=== PATIENT | female | born 1965 | race Caucasian/White ===

== ENCOUNTER 2023-05-08 00:31 | Inpatient (IN) | payer BC, SELFPAY ==
[2023-05-07 20:25] VITALS: BP 185/136
[2023-05-07 21:12] VITALS: BMI 19.9
[2023-05-07 21:38] LABS: % Eosinophils 0.7 % (0-6); % Immature Granulocytes 0.2 % (0-0.5); % Lymphocytes 13.2 % (20.5-51.1); % Monocytes 5.6 % (1.7-9.3); % Neutrophils 79.3 % (42.2-75.2); Absolute Basophils 0.1 10^3/uL (0-0.2); Absolute Eosinophils 0.1 10^3/uL (0-0.7); Absolute Lymphocytes 1.1 10^3/uL (1.2-3.4); Absolute Monocytes 0.5 10^3/uL (0.1-0.6); Absolute Neutrophils 6.4 10^3/uL (1.4-6.5); Hematocrit 38.7 % (37.0-47.0); Hemoglobin 14.1 g/dL (12.0-16.0); Mean Corp Hgb Conc. 36.4 g/dL (33.0-37.0); Mean Corpuscular Hgb 29.4 pg (27.0-31.0); Mean Corpuscular Volume 80.6 fL (81.0-99.0); Mean Platelet Volume 8.2 fL (7.4-10.4); Nucleated Red Blood Cells % 0 %; Platelet Count 256 10^3/uL (130-400); Red Cell Dist. Width 12.5 % (11.5-14.5); White Blood Cell Count 8.1 10^3/uL (4.8-10.8)
[2023-05-07 21:40] VITALS: BP 210/110
[2023-05-07] MEDS: VALIUM INJECTION 5 MG IV (21:46)
[2023-05-07] MEDS: NSS 1000 IV (21:53)
[2023-05-07 21:59] LABS: ALT (SGPT) 35 U/L (0-35); AST (SGOT) 57 U/L (14-36); Albumin 5.6 g/dl (3.5-5.0); Alkaline Phosphatase 55 U/L (38-126); Blood Urea Nitrogen 6 mg/dl (7-17); Calcium 9.5 mg/dl (8.4-10.2); Carbon Dioxide 23 mmol/L (22-30); Chloride 82 mmol/L (98-107); Creatine Phosphokinase 306 U/L (30-135); Estimated Creatinine Clearance 90 ml/min; Glucose 112 mg/dl (70-99); Magnesium 1.8 mg/dl (1.6-2.3); Potassium 4.1 mmol/L (3.5-5.1); Sodium 114 mmol/L (135-145); Total Bilirubin 0.6 mg/dl (0.2-1.3); Total Protein 8.8 g/dl (6.3-8.2); eGFR > 60.00
[2023-05-07 22:03] LABS: Troponin I < 0.012 ng/ml
[2023-05-07 22:31] VITALS: BP 180/110
--- NOTE | 2023-05-07 22:32 | ED.GENMED ---
History of Present Illness
<Edilberto Rocha DO - Last Filed: 05/15/23 09:14>
General
Chief Complaint: Chest Pain
Time Seen by Provider: 05/07/23 20:51
Travel History
Have you had any contact with someone who has COVID-19?: No
Do you have any symptoms of coronavirus? Fever > 100 degrees, chills, cough, shortness of breath, sore throat, loss of taste or smell, muscle aches, or headache?: No
<Falguni White PA-C - Last Filed: 05/12/23 09:39>
General
Source: patient
Exam Limitations: none
Nursing documentation reviewed up to this point in time: agreed with
History of Present Illness
History of Present Illness:
pt is a 57 y/o F with h/o anxiety/depression, htn
says that she has been having chest tightness off and on for a few days, was attributing to stress. she got spearated fro her and just moved to this area.
pt says she felt some chest tightness around 4 pm today and went for a run with her dog, was able to do the run . but then shortly after felt nauseated, fatigued and got some cramps in her legs. she says she didn't feel right, she wasn't sure if
she was having a panic attack.
does admit to daily alcohol use,vodka. and has had hyponatremia before which was attributed to her psychiatric meds. but she has never been hospitalized for it
she is on a low dose lisinopril becuase she doesn't tolerate bp meds well
she has not had any blurry vision, headache, confusion, focal weakness, pleuritic pain, vomiting, diarrhea.
while i was examining pt she was having severe muscle spasms in her legs, was tachycardic and diaphoretic
<Falguni White PA-C - Last Filed: 05/12/23 09:39>
Past History
ED Past Medical History: HTN and Psychiatric
Social History
Tobacco: Non-smoker
Alcohol: Daily
Drug: None
Personal:
Living: alone
Employment: Employed
<AZIZA Valdovinos Last Filed: 05/12/23 09:39>
Review of Systems
Allergies reviewed?: Yes
All Other Systems: Not applicable
<AZIZA Valdovinos Last Filed: 05/12/23 09:39>
Physical Exam
Physical Exam:
GENERAL: Alert , during spasm pt was diaphoretic and tachy and uncomfortable with tenseness in her legs; all resolved and vitals stabilized
EYE: pupils equal and reactive
NECK: Supple
ENT: o/p clr, mmm.
CARDIAC: Regular rate and rhythm .
LUNGS: Clear breath sounds bilaterally, no acute respiratory distress, no wheezes/rales/rhonchi
ABDOMEN: Soft, without focal tenderness, no r/g, no cvat, normal bowel sounds
NEUROLOGICAL: Alert and oriented, no focal neuro deficits
SKIN: Warm and dry, skin intact.
MUSCULOSKELETAL: No edema, well perfused. neg norberto's sign
normal pulses
PSYCH: Normal and appropriate interaction.
Scores
<Edilberto Rocha DO - Last Filed: 05/15/23 09:14>
Heart Score for Chest Pain Patients
Heart Score for Chest Pain Patients: 3
Heart Score Risk: 2.5% MACE over next 6 weeks
<AZIZA Valdovinos Last Filed: 05/12/23 09:39>
Heart Score for Chest Pain Patients
STEMI patient?: No
History: Slightly or Non-Suspicious
ECG: Nonspecific Repolarization
Age: >45 - <65 years
Risk Factors: 1 or 2 Risk Factors
Troponin: </= Normal Limit
Heart Score for Chest Pain Patients: 3
Heart Score Risk: 2.5% MACE over next 6 weeks
Course
<Edilberto Rocha, - Last Filed: 05/15/23 09:14>
Orders/Labs/Results
Orders:
Orders
05/07/23 20:23
Electrocardiogram (*1) Urgent
Reason for Study: Chest Pain
05/07/23 20:24
EKG- Treatment ONCE
05/07/23 21:02
Cardiac Monitoring- Treatment ONCE
IV Insert/Care/Rem.- Treatment PRN
O2 Therapy [RESP] Urgent
Titrate/Wean O2 to maintain O2 sat greater than (%): 93
Special Instructions: TO MAINTAIN CONTINUOUS O2 SATS >/= 93%
Pulse Ox/cont/shift [RESP] Urgent
Quantity: 1
Special Instructions: continuous pulse ox
05/07/23 21:32
Alcohol Urgent
Complete Blood Count/With Diff Urgent
Comprehensive Metabolic Panel Urgent
Creatine Phosphokinase Urgent
Magnesium Urgent
Serum Osmolality Urgent
Comment: ADD ON
Troponin I Urgent
05/07/23 21:36
diazePAM [Valium Injection] 10 mg .ROUTE .STK-MED ONE
05/07/23 21:46
diazePAM [Valium Injection] 5 mg IV NOW STA
05/07/23 21:53
0.9% Sodium Chloride 1000 ml [Nss] 1,000 ml IV BOLUS
05/07/23 22:11
Add On- LAB Urgent
Tests Added?: UA, UDS
05/07/23 22:12
Labetalol HCl [Trandate] 10 mg IV NOW STA
05/07/23 22:42
Osmolality, Random Urine Urgent
Date Specimen was Collected: 05/07/23
Time Specimen was Collected: 22:30
Urine Sodium Urgent
Date Specimen was Collected: 05/07/23
Time Specimen was Collected: 22:30
05/07/23 23:00
3% Sodium Chloride 250 ml [Sodium Chloride 3%] 250 ml IV ONCE
05/08/23 00:07
CT Head W/o Iv Contrast Urgent
Comment:
Reason For Exam: Headache, Hyponatremia
Diazepam [Valium] 5 mg PO NOW STA
CXR2 [CR Chest - 2 Views ] Urgent
Comment:
Reason For Exam: Hyponatremia
05/08/23 00:11
Admit/Transfer Patient As Directed
Co-Sign Provider:
Level of Care: Inpatient admission
Assign to:: ICU
Physician / Group: Vasyl
Diagnosis: Symptomatic Hyponatremia, Uncontrolled Hypertension
Reason for Hospitalization: Symptomatic Hyponatremia, Uncontrolled Hypertension
Expected length of stay greater than two midnights?: Yes
ELOS- Estimated Length of Stay in days: 3
I certify the patient meets the requirements for IP care: Yes
05/08/23 00:14
Code Status As Directed
Resuscitation Status: Full Code
05/08/23 02:08
Acetaminophen [Tylenol] 650 mg PO Q4HPRN PRN
Diazepam [Valium] 5 mg PO TIDPRN PRN
HYDROmorphone [Dilaudid] 0.5 mg IV Q4HPRN PRN
Labetalol HCl [Trandate] 10 mg IV Q6HPRN PRN
05/08/23 02:08
NEPHROLOGY CONSULT Routine
Consulting Provider: Funmi Fitzgerald
Was physician already notified: Yes
Reason for consult: Hyponatremia
Activity As Directed
Activity Level: Ambulate
With Assistance
Bladder Scan As Directed
Follow Bladder Retention/Intermittent Cath Algorithm?: Yes
PRN if no void in __ hours: 6
Frequency: Per Retention Algorithm
If Bladder Scan Result >: 400
then:: Straight cath
EKG with chest pain [ECG as needed] As Directed
ECG as needed for:: Chest Pain
I/O [Intake/ Output] As Directed
Frequency: Per unit guidelines
Neurological Checks As Directed
Frequency: q4h
Orthostatic Vital Signs As Directed
Orthostatic VS Frequency: BID
Pneumatic Compression Sleeves As Directed
Type: Knee high
Straight Cath As Directed
Frequency: Per Retention Algorithm
Additional Instructions: straight cath as needed per acute urinary retention algorithm for 24 hrs
Additional Instructions: for bladder scan greater than 400 mL
Vital Signs As Directed
Frequency: Per unit guidelines
Oxygen Therapy [O2 Therapy] [RESP] Routine
Titrate/Wean O2 to maintain O2 sat greater than (%): 94
DX Deep Vein Thrombosis Video Routine
05/08/23 02:50
Sodium Q4H
TSH Reflex To Free T4 Routine
05/08/23 06:00
EKG [Electrocardiogram (*1)] IN AM
Reason for Study: Chest Pain
Regular
At Your Request: Full Participation
Fluid Restriction: 1200 mL/day (40 oz)
Basic Metabolic Panel IN AM
Complete Blood Count/No Diff IN AM
Cortisol, Random IN AM
Creatine Phosphokinase IN AM
Magnesium IN AM
Phosphorus IN AM
Sodium Q4H
05/08/23 08:00
Thyroid [[place] Thyroid] 60 mg PO DAILY
05/08/23 10:21
Sodium Q4H
05/08/23 22:00
Quetiapine Fumarate [Seroquel] 50 mg PO HS
Abnormal Lab Results
05/07/23 05/07/23
21:32 22:42
MCV 80.6 L fL
(81.0-99.0)
Absolute Lymphs (auto) 1.1 L 10^3/uL
(1.2-3.4)
Neutrophils % 79.3 H %
(42.2-75.2)
Lymphocytes % 13.2 L %
(20.5-51.1)
Sodium 114 L* mmol/L
(135-145)
Chloride 82 L mmol/L
(98-107)
BUN 6 L mg/dl
(7-17)
Creatinine 0.4 L mg/dL
(0.6-1.0)
Glucose 112 H mg/dl
(70-99)
Serum Osmolality 243 L mOsm/kg
(275-300)
AST 57 H U/L
(14-36)
Creatine Kinase 306 H U/L
(30-135)
Total Protein 8.8 H g/dl
(6.3-8.2)
Albumin 5.6 H g/dl
(3.5-5.0)
Urine Sodium 143 H mmol/L
(30-90)
05/07/23 21:32
05/07/23 21:32
Vital Signs
Initial and Last Documented VS:
Initial Vital Signs
Temp Pulse Resp BP Pulse Ox
98.7 F 93 16 185/136 99
05/07/23 20:25 05/07/23 20:25 05/07/23 20:25 05/07/23 20:25 05/07/23 20:25
Last Documented Vital Signs
Temp Pulse Resp BP Pulse Ox
98.0 F 90 18 151/97 98
05/11/23 11:18 05/11/23 13:44 05/11/23 14:00 05/11/23 14:08 05/10/23 16:00
Cassialt;Falguni White PA-C - Last Filed: 05/12/23 09:39>
Orders/Labs/Results
Orders:
Orders
05/07/23 20:23
Electrocardiogram (*1) Urgent
Reason for Study: Chest Pain
05/07/23 20:24
EKG- Treatment ONCE
05/07/23 21:02
Cardiac Monitoring- Treatment ONCE
IV Insert/Care/Rem.- Treatment PRN
O2 Therapy [RESP] Urgent
Titrate/Wean O2 to maintain O2 sat greater than (%): 93
Special Instructions: TO MAINTAIN CONTINUOUS O2 SATS >/= 93%
Pulse Ox/cont/shift [RESP] Urgent
Quantity: 1
Special Instructions: continuous pulse ox
05/07/23 21:32
Alcohol Urgent
Complete Blood Count/With Diff Urgent
Comprehensive Metabolic Panel Urgent
Creatine Phosphokinase Urgent
Magnesium Urgent
Serum Osmolality Urgent
Comment: ADD ON
Troponin I Urgent
05/07/23 21:36
diazePAM [Valium Injection] 10 mg .ROUTE .STK-MED ONE
05/07/23 21:46
diazePAM [Valium Injection] 5 mg IV NOW STA
05/07/23 21:53
0.9% Sodium Chloride 1000 ml [Nss] 1,000 ml IV BOLUS
05/07/23 22:11
Add On- LAB Urgent
Tests Added?: UA, UDS
05/07/23 22:12
Labetalol HCl [Trandate] 10 mg IV NOW STA
05/07/23 22:42
Osmolality, Random Urine Urgent
Date Specimen was Collected: 05/07/23
Time Specimen was Collected: 22:30
Urine Sodium Urgent
Date Specimen was Collected: 05/07/23
Time Specimen was Collected: 22:30
05/07/23 23:00
3% Sodium Chloride 250 ml [Sodium Chloride 3%] 250 ml IV ONCE
05/08/23 00:07
CT Head W/o Iv Contrast Urgent
Comment:
Reason For Exam: Headache, Hyponatremia
Diazepam [Valium] 5 mg PO NOW STA
CXR2 [CR Chest - 2 Views ] Urgent
Comment:
Reason For Exam: Hyponatremia
05/08/23 00:11
Admit/Transfer Patient As Directed
Co-Sign Provider:
Level of Care: Inpatient admission
Assign to:: ICU
Physician / Group: Vasyl
Diagnosis: Symptomatic Hyponatremia, Uncontrolled Hypertension
Reason for Hospitalization: Symptomatic Hyponatremia, Uncontrolled Hypertension
Expected length of stay greater than two midnights?: Yes
ELOS- Estimated Length of Stay in days: 3
I certify the patient meets the requirements for IP care: Yes
05/08/23 00:14
Code Status As Directed
Resuscitation Status: Full Code
05/08/23 02:08
Acetaminophen [Tylenol] 650 mg PO Q4HPRN PRN
Diazepam [Valium] 5 mg PO TIDPRN PRN
HYDROmorphone [Dilaudid] 0.5 mg IV Q4HPRN PRN
Labetalol HCl [Trandate] 10 mg IV Q6HPRN PRN
05/08/23 02:08
NEPHROLOGY CONSULT Routine
Consulting Provider: Funmi Fitzgerald
Was physician already notified: Yes
Reason for consult: Hyponatremia
Activity As Directed
Activity Level: Ambulate
With Assistance
Bladder Scan As Directed
Follow Bladder Retention/Intermittent Cath Algorithm?: Yes
PRN if no void in __ hours: 6
Frequency: Per Retention Algorithm
If Bladder Scan Result >: 400
then:: Straight cath
EKG with chest pain [ECG as needed] As Directed
ECG as needed for:: Chest Pain
I/O [Intake/ Output] As Directed
Frequency: Per unit guidelines
Neurological Checks As Directed
Frequency: q4h
Orthostatic Vital Signs As Directed
Orthostatic VS Frequency: BID
Pneumatic Compression Sleeves As Directed
Type: Knee high
Straight Cath As Directed
Frequency: Per Retention Algorithm
Additional Instructions: straight cath as needed per acute urinary retention algorithm for 24 hrs
Additional Instructions: for bladder scan greater than 400 mL
Vital Signs As Directed
Frequency: Per unit guidelines
Oxygen Therapy [O2 Therapy] [RESP] Routine
Titrate/Wean O2 to maintain O2 sat greater than (%): 94
DX Deep Vein Thrombosis Video Routine
05/08/23 02:50
Sodium Q4H
TSH Reflex To Free T4 Routine
05/08/23 06:00
EKG [Electrocardiogram (*1)] IN AM
Reason for Study: Chest Pain
Regular
At Your Request: Full Participation
Fluid Restriction: 1200 mL/day (40 oz)
Basic Metabolic Panel IN AM
Complete Blood Count/No Diff IN AM
Cortisol, Random IN AM
Creatine Phosphokinase IN AM
Magnesium IN AM
Phosphorus IN AM
Sodium Q4H
05/08/23 08:00
Thyroid [[place] Thyroid] 60 mg PO DAILY
05/08/23 10:21
Sodium Q4H
05/08/23 22:00
Quetiapine Fumarate [Seroquel] 50 mg PO HS
Abnormal Lab Results
05/07/23 05/07/23
21:32 22:42
MCV 80.6 L fL
(81.0-99.0)
Absolute Lymphs (auto) 1.1 L 10^3/uL
(1.2-3.4)
Neutrophils % 79.3 H %
(42.2-75.2)
Lymphocytes % 13.2 L %
(20.5-51.1)
Sodium 114 L* mmol/L
(135-145)
Chloride 82 L mmol/L
(98-107)
BUN 6 L mg/dl
(7-17)
Creatinine 0.4 L mg/dL
(0.6-1.0)
Glucose 112 H mg/dl
(70-99)
Serum Osmolality 243 L mOsm/kg
(275-300)
AST 57 H U/L
(14-36)
Creatine Kinase 306 H U/L
(30-135)
Total Protein 8.8 H g/dl
(6.3-8.2)
Albumin 5.6 H g/dl
(3.5-5.0)
Urine Sodium 143 H mmol/L
(30-90)
05/07/23 21:32
05/07/23 21:32
Vital Signs
Initial and Last Documented VS:
Initial Vital Signs
Temp Pulse Resp BP Pulse Ox
98.7 F 93 16 185/136 99
05/07/23 20:25 05/07/23 20:25 05/07/23 20:25 05/07/23 20:25 05/07/23 20:25
Last Documented Vital Signs
Temp Pulse Resp BP Pulse Ox
98.0 F 90 18 151/97 98
05/11/23 11:18 05/11/23 13:44 05/11/23 14:00 05/11/23 14:08 05/10/23 16:00
<Falguni White PA-C - Last Filed: 05/12/23 09:39>
MDM/Problems Addressed
MDM/Problems Addressed:
57 y/o F with h/o htn, bipolar/depression ; here with spasms in her legs that feel like muscle cramps, some headache, chest tightness, anxiety symtoms; she drinks a few drinks ETOH daily; has never had labs here before; says her NA has been low
before; but here is very hypertensive 200/110 and has intermittent spasms in her legs; sodium is 114; cr normal; pending urine lytes/na; w
after d/w renal dr. fitzgerald, recommended hypertonic saline 3% at 20 cc per hour
labetalol for BP control
may require unit.
<Edilberto Rocha DO - Last Filed: 05/15/23 09:14>
*Critical Care Note
Total Time (30-74mins, 75-104mins- exclusive of procedures): 40 minutes
ED Attending Note
<Edilberto Rocha DO - Last Filed: 05/15/23 09:14>
ED Attending Note
Patient seen and examined by attending physician: Yes
I performed the substantive portion of visit, reviewed & personally made and approve the management plan that is documented in note by myself or POLLO.: Yes
ED Attending Note:
57-year-old female presents with muscle spasms and some tingling in her fingers. Patient does admit that she has a history of daily alcohol use. She has had mild low sodium in the past. Patient states that there was maybe related to her
medications. No fevers. Does not admit to excessive water intake. Exam: Awake and alert, heart regular, abdomen soft. Assessment plan: Acute severe hyponatremia. Treat with 3% saline. Check urine osmolality, urine sodium. Question related to
Lexapro. Admit to ICU
-
Portions of this chart may have been created with voice recognition software.� Occasional wrong word or��sound alike� substitutions may have occurred due to the inherent limitations of voice recognition software.
Discharge Plan
Departure
Patient Disposition: Admit
Date of Disposition: 05/07/23
Time of Disposition: 22:31
Admit to: ICU
Presentation/result/management discussed w/ accepting MD/DO: Hospitalist
Condition: Fair
Covid-19: Not Applicable
Discharge Problem:
Hypertensive urgency, Acute hyponatremia
Interventions
Interventions:
*General Assessment Last Done: 05/07/23 20:54
*Neglect/Abuse Screening Last Done: 05/07/23 20:25
ED- Fall Risk Assessment Last Done: 05/07/23 20:54
*ED COVID-19 Vaccine History Last Done: 05/07/23 20:54
*Nursing Disposition Last Done: 05/08/23 02:00
ED- Cardiac Assessment Last Done: 05/07/23 20:54
Discharge Date and Time
Discharge Date/Time: 05/08/23 02:24
[2023-05-07] MEDS: TRANDATE 10 MG IV (22:35)
[2023-05-07 22:42] LABS: Osmolality Serum 243 mOsm/kg (275-300)
[2023-05-07 22:48] LABS: Alcohol None Detected
[2023-05-07 22:57] LABS: Osmolality Urine 332 mOsm/kg (300-900)
[2023-05-07 23:22] LABS: Urine Sodium 143 mmol/L (30-90)
[2023-05-07] MEDS: SODIUM CHLORIDE 3% 250 IV (23:36)
[2023-05-07 23:45] VITALS: BP 170/70
[2023-05-08] VITALS (24 sets, daily range): BP systolic 116–193; BP diastolic 73–108; BMI 19.9
[2023-05-08] MEDS: VALIUM 5 MG PO (00:14)
--- NOTE | 2023-05-08 01:08 | HPS.HSE ---
Family Physician
-
Family Physician: Gayle Denton MD
Chief Complaint
-
Chest Pain, Headache, Dizziness
History of Present Illness
Patient is a 57y F with PMH significant for endometriosis, migraine headaches and uncontrolled HTN who presents to ED complaining of dizziness, headache, diaphoresis and cramping pain. Patient states that her symptoms started today and have
gradually worsened throughout the day. Patient denies any prior history of similar episodes. She reports recent issues with L sided chest pain with radiation into the arm, general fatigue and depression. These symptoms have been ongoing for
months. Patient notes that she had a stress echo at [place] about 6 months ago which was reportedly unremarkable.
She denies any recent medication changes or adjustments.
Patient notes that she has been under a great deal of stress lately and states that she recently relocated to [facility] following a separation.
In the ED, patient complains of severe cramping pains in the feet and lower legs. She complains of posterior headache.
Patient is noted to be severely hyponatremic (114). She states that she has chronic hyponatremia - but she cannot recall a number.
Medical History
Past Medical History
Past Medical History: Reports Other
Additional Past Medical History:
Hypertension
Migraine Headaches
Endometriosis
Anxiety / Depression
Chronic Hyponatremia
Hypothyroidism
Past Surgical History: Reports Other
Additional Past Surgical History:
Multiple Ex Lap surgeries for endometriosis
Breast Implants
Right Knee Arthroscopy
Social History
Tobacco: Non-smoker
Alcohol: Daily (2 drinks of vodka daily.)
Drug: None
Family History
Family History: Not pertinent
Allergies / Home Medications
Allergies reflects when Allergies were last updated in [facility].
Home Medications with original date entered in [facility]
Allergy/Medication List:
Allergies
Allergy/AdvReac Type Severity Reaction Status Date / Time
sulfamethoxazole Allergy Itching Verified 05/07/23 20:25
[From Bactrim]
trimethoprim [From Bactrim] Allergy Itching Verified 05/07/23 20:25
Home Medications
Lactobac no.2-Bifidobac no.1-S. thermo 112.5 billion cell capsule (Visbiome) 1 cap PO DAILY 05/07/23
cyclosporine 0.05 % eye drops in a dropperette (Restasis) 1 drp BOTH EYES Q12H 05/07/23
dextroamphetamine-amphetamine 20 mg tablet (Adderall) 10 mg PO BID@0800,1200 05/07/23
escitalopram oxalate 10 mg tablet (Lexapro) 10 mg PO DAILY 05/07/23
lisinopril 2.5 mg tablet 2.5 mg PO DAILY@1500 05/07/23
polyethylene glycol 3350 17 gram oral powder packet (Miralax) 17 g PO DAILY 05/07/23
quetiapine 100 mg tablet (Seroquel) 50 mg PO HS 05/07/23
therapeutic multivitamin 1 tab PO DAILY 05/07/23
thyroid (pork) 60 mg tablet ([place] Thyroid) 60 mg PO DAILY 05/07/23
trazodone 150 mg tablet 225 mg PO HS 05/07/23
Review of Systems
-
History Source: Patient
A 12 point ROS was completed and negative except as noted: Yes
Constitutional: Reports Fatigue and Night Sweats; Denies Fever or Chills
EENT: Denies Sore Throat
Respiratory: Denies Cough, Hemoptysis or Trouble Breathing
Cardiac: Reports Chest Pain; Denies Palpitations or Syncope
Abdomen/GI: Reports Nausea; Denies Abdominal Pain, Vomiting, Diarrhea, Constipated, Bloody Stools or Black Stools
: Denies Dysuria, Frequency or Flank Pain
Musculoskeletal: Reports Other (Cramping); Denies Joint Pain or Edema
Neurological: Reports Dizzy and Headache; Denies Weakness or Numbness
Psych: Reports Depression and Anxiety
Physical Exam
Vital Signs
Vital Signs
Temp Pulse Resp BP Pulse Ox
98.8 F 68 20 170/100 99
05/08/23 00:56 05/08/23 00:56 05/08/23 00:56 05/08/23 00:56 05/08/23 00:56
Physical Exam
General: Other (57y F in mild to moderate distress due to cramping pain.)
HEENT: Moist mucous membranes, PERRLA and Other (Neck supple. No masses.)
Respiratory: Clear; No Wheezes, Rales or Rhonchi
Cardiac: S1/S2 and Regular Rhythm; No Murmur
GI: Soft, Non Tender, Non Distended and Normal Bowel Sounds
Musculoskeletal: No Clubbing, No Cyanosis and No Edema
Neuro: AO x 3 and Nonfocal/grossly intact
Laboratory Results
-
05/07/23 21:32
05/07/23 21:32
Laboratory Results
Total Bilirubin 0.6 mg/dl (0.2-1.3) 05/07/23 21:32
AST 57 U/L (14-36) H 05/07/23 21:32
ALT 35 U/L (0-35) 05/07/23 21:32
Alkaline Phosphatase 55 U/L (38-126) 05/07/23 21:32
Troponin I < 0.012 ng/ml 05/07/23 21:32
Impression/Plan
-
A/P: Patient is a 57y F with PMH significant for hypertension, hypothyroidism and chronic hyponatremia who presents to ED complaining of headache, dizziness, fatigue and chest pain.
Severe Hyponatremia
Chronic Hyponatremia
- Admit to ICU for further evaluation and treatment.
- Initial Na level = 114.
- Gentle 3% saline infusion overnight and follow serial sodium levels.
- Adjust salt / fluid intake for gradual correction.
- Nephrology evaluation.
- Hold culprit medications (Lexapro / Trazodone).
- CXR and CT scan done in the ED (see below). [employer] process may be contributing to chronic component of hypoNa.
- Check TFTs, AM cortisol, etc.
- Follow for clinical improvement coincident with Na correction.
- Follow neurologic exam for any new changes.
Uncontrolled Hypertension
- Patient reports long history of poor BP control and reported med intolerances to many BP agents in the past.
- Currently on only very low-dose lisinopril.
- Labetalol given in the ED with improvement.
- Normal troponin, SCr, etc.
- Follow BP and given additional labetalol PRN for very high pressures.
- Nephrology evaluation as noted above.
- Patient does not appear volume overloaded at all despite hypertension and hyponatremia.
- Add new BP agents as needed for adequate control.
Abnormal [employer] Imaging
- CT head done in the ED with multiple and bilateral abnormalities - potentially c/w prior CVAs, etc.
- Reviewed with patient who reports prior 'misdiagnosis' of MS.
- Had MRI at [facility] reporting demyelinating lesions. Extensive and detailed evaluation at [facility] following this showed no evidence of MS.
- Repeat MRI for further evaluation of these lesions.
- Neurology evaluation.
- Follow neuro exams as noted above.
Muscle Cramping
- ? secondary to fluid / salt imbalance.
- Follow for improvement with Na correction.
- Heat application to extremities. Valium PRN for spasms / cramping.
Anxiety / Depression
- Significant recent social stressors with relocation, separation, etc.
- Continue quetiapine for now.
- Hold escitalopram and trazodone as noted above given severe hyponatremia.
- Adjust regimen for mood stabilization - ? up-titrate quetiapine first with less association with hyponatremia.
Alcohol Use Disorder
- Patient reports daily alcohol use - 2 drinks per day.
- Monitor for any symptoms of withdrawal during visit.
- BZDs if needed based on MSAS.
- Thiamine, folate replacements.
DVT Prophylaxis: SCDs
Code Status: Full
[2023-05-08 01:29] LABS: APTT 30.5 Sec (23.4-35.0); INR 1.16; PT 14.6 Sec (11.4-14.6)
[2023-05-08] MEDS: DILAUDID 0.5 MG IV (02:36)
[2023-05-08 03:15] LABS: Sodium 115 mmol/L (135-145)
[2023-05-08 03:19] LABS: Alcohol None Detected
[2023-05-08 03:48] LABS: TSH Reflex To Free T4 4.14 uIU/ml (0.47-4.68)
[2023-05-08 06:19] LABS: Hematocrit 40.1 % (37.0-47.0); Hemoglobin 14.7 g/dL (12.0-16.0); Mean Corp Hgb Conc. 36.7 g/dL (33.0-37.0); Mean Corpuscular Hgb 29.5 pg (27.0-31.0); Mean Corpuscular Volume 80.4 fL (81.0-99.0); Platelet Count 269 10^3/uL (130-400); Red Blood Cell Count 4.99 10^6/uL (4.20-5.40); Red Cell Dist. Width 12.2 % (11.5-14.5); White Blood Cell Count 8.5 10^3/uL (4.8-10.8)
[2023-05-08] MEDS: ATIVAN 1 MG PO (06:31)
[2023-05-08 06:45] LABS: Sodium 115 mmol/L (135-145)
[2023-05-08 06:48] LABS: Blood Urea Nitrogen 5 mg/dl (7-17); Calcium 9.3 mg/dl (8.4-10.2); Carbon Dioxide 20 mmol/L (22-30); Chloride 85 mmol/L (98-107); Creatine Phosphokinase 810 U/L (30-135); Estimated Creatinine Clearance 90 ml/min; Glucose 117 mg/dl (70-99); Magnesium 1.9 mg/dl (1.6-2.3); Phosphorus 3.8 mg/dl (2.5-4.5); Sodium 115 mmol/L (135-145); eGFR > 60.00
--- NOTE | 2023-05-08 07:10 | PTCARENOTE ---
Pt Aox3, anxious, NSR on monitor, BP elevated but does not require labetalol at this time. MSAS-6, see flowsheet, 3% infusing, q4hour sodiums and neuro checks. 10/08 headache, prn medication with relief. EKG complete, plan for MRI.
[2023-05-08 07:12] LABS: Cortisol, Random 21.7 ug/dl
--- NOTE | 2023-05-08 07:15 | CON.INTV ---
Consultation
Consultation Request
Date/Time Consultation Requested: 05/08/23
Date/Time Consultation Performed: 05/05/23
Performing Provider: Omar
Medical History
-
History of Present Illness:
Patient is a 57 year old F with PMH significant for endometriosis, migraine headaches and uncontrolled HTN presenting to ED with acute onset dizziness, headache, diaphoresis and cramping pain x 1 day.� She reports recent issues with L sided chest
pain with radiation into the arm, general fatigue and depression.� These symptoms have been ongoing for months.� She does admit to drinking 1-2L of water a day, she exercises everyday and drinks a lot of water. In the ED, patient found to be
severely hyponatremic, with serum sodium 114.� She states that she has chronic hyponatremia but does not know baseline level. She is placed on 3% saline and admitted to ICU for profound electrolyte abnormality.
Past Medical History
Past Medical History: Other (see list below)
Social History
Tobacco: Non-smoker
Alcohol: None
Drug: None
Family History
Family History: Reviewed & Not Pertinent
Allergies / Home Medications
Allergies
Allergy/AdvReac Type Severity Reaction Status Date / Time
sulfamethoxazole Allergy Itching Verified 05/07/23 20:25
[From Bactrim]
trimethoprim [From Bactrim] Allergy Itching Verified 05/07/23 20:25
Home Medications
Medication Instructions Recorded Confirmed Last Taken Type
Lactobac no.2-Bifidobac no.1-S. 1 cap PO DAILY 05/07/23 05/07/23 05/07/23 History
thermo 112.5 billion cell capsule
(Visbiome)
cyclosporine 0.05 % eye drops in a 1 drp BOTH EYES Q12H 05/07/23 05/07/23 05/07/23 History
dropperette (Restasis)
dextroamphetamine-amphetamine 20 10 mg PO BID@0800,1200 05/07/23 05/07/23 05/07/23 History
mg tablet (Adderall)
escitalopram oxalate 10 mg tablet 10 mg PO DAILY 05/07/23 05/07/23 05/07/23 History
(Lexapro)
lisinopril 2.5 mg tablet 2.5 mg PO DAILY@1500 05/07/23 05/07/23 05/07/23 History
polyethylene glycol 3350 17 gram 17 g PO DAILY 05/07/23 05/07/23 05/07/23 History
oral powder packet (Miralax)
quetiapine 100 mg tablet (Seroquel) 50 mg PO HS 05/07/23 05/07/23 05/06/23 History
therapeutic multivitamin 1 tab PO DAILY 05/07/23 05/07/23 05/07/23 History
thyroid (pork) 60 mg tablet 60 mg PO DAILY 05/07/23 05/07/23 05/07/23 History
([place] Thyroid)
trazodone 150 mg tablet 225 mg PO HS 05/07/23 05/07/23 05/06/23 History
Review of Systems
-
History Source: Patient
All other systems: Negative unless noted
Vitals / Labs / Diagnostic Testing
Vital Signs
Temp Pulse Resp BP Pulse Ox
98.8 F 72 12 174/104 98
05/08/23 00:56 05/08/23 06:15 05/08/23 06:15 05/08/23 06:00 05/08/23 06:15
Lab Data
05/08/23 06:00
Laboratory Results
05/08/23
01:12
PT 14.6
INR 1.16
APTT 30.5
Diagnostic Testing:
Physical Exam
-
HEENT: Normocephalic, Anicteric and Moist Mucous Membranes
Cardiovascular: S1/S2 and Regular Rhythm
Respiratory: Clear and Non-Labored Respirations
GI: Soft, Non Distended and Non Tender
Neurology: Awake, Alert, Oriented, AO x 3 and No Motor Deficits
Skin: Warm, Dry and Good Color
General: Comfortable and Other (NAD)
Assessment
-
Patient is a 57 year old F with PMH significant for endometriosis, migraine headaches and uncontrolled HTN presenting to ED with acute onset dizziness, headache, diaphoresis and cramping pain x 1 day.� In the ED, patient found to be severely
hyponatremic, with serum sodium 114.� She states that she has chronic hyponatremia but does not know baseline level. She is placed on 3% saline and admitted to ICU for profound electrolyte abnormality.
Symptomatic, acute on chronic, severe hyponatremia, Na 114
Possible related to daily large water ingestion superimposed on chronic hyponatremia from SSRIs
Dizziness, headache, diaphoresis and cramping pain
Mild metabolic acidosis
Hypochloremia
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
Endometriosis
Migraine headaches
HTN
Plan
No current signs of metabolic encephalopathy or MS changes/following commands
Psychiatric history noted above including anxiety/depression on SSRI
She has been told in the past that her Na was from her meds
She does drink water everyday as she notes she exercises daily
About 2L per day, on top of chronic low levels
Placed on 3% saline, initial head CT neg
Denies pain at this time.
Pain/sedation: PRN
RASS goals: 0
Hemodynamically stable, not requiring pressors.
Cardiac history reviewed--HTN
No prior ECHO for review
Resume home meds as tolerated
Monitor on telemetry
Oxygen needs: stable on RA
Prior history of lung disease: none
Supplemental O2 as indicated to maintain sats > 89%
CXR/CT reviewed indicating NAD, repeat at needed
Advance diet as tolerated
Product Marketing Intern recommendations
Aspiration precautions, HOB > 30 degrees
Speech therapy eval can be considered if at elevated risk
GI prophylaxis if indicated for mechanical ventilation >48 hours, prior history of GERD, stress ulcer formation in the critically ill
Severe hyponatremia noted, on 3%
Replete electrolytes as needed--low Na
Renal consult, may be dilutional from daily large water intake
Acid/base status: mild acidosis, low Cl, replete with 3%
Was told chronic low Na from SSRIs
Repeat labs q4 until >120
Creat at baseline, no history of renal disease
Void trials
Follow urine output, critical I/Os
No signs/symptoms suspicious for infectious etiology at this time
Observe off antibiotics for now
Follow fever trend, WBC count
CBC stable, no signs of bleeding or coagulopathy.
DVT prophylaxis as assessed based on risk, including mechanical SCDs
Can transfuse if indicated for Hb <7, plt < 10
No prior h/o diabetes
Monitor accuchecks PRN/SS coverage if needed
H/o thyroid disease, resume home meds
We will follow
Diagnostic Data
Chest X-Ray: 05/08/[address] Scan: HEAD 05/08/23- There are no acute abnormalities. There is no intracranial hemorrhage. There is no edema or mass effect to suggest neoplasm. There are no abnormal extra-axial fluid c collections. There are no focal areas of diminished density
to suggest infarct. There is mild diffuse cortical atrophy as evidenced by prominence of the CSF spaces. Additionally, there are patchy patchy areas of low density in the periventricular and subcortical white matter bilaterally. These white matter
changes are nonspecific and may be ischemic, degenerative or demyelinating in origin.
Echo:
PFT's:
Reports and relevant images were personally reviewed.
-----
Critical Care time 55 mins -- The patient is admitted for acute critical illness for the treatment of vital organ failure and/or prevention of further life-threatening conditions. Total care includes time spent in review of history, physical exam,
medications, hemodynamic/ventilator parameters, laboratory data, imaging and discussion with house staff, pharmacy, respiratory therapy, piccolo mechanic, and nursing.
[2023-05-08 07:41] LABS: Urine Albumin Trace (Neg - Trace); Urine Bilirubin Negative (Negative); Urine Character Clear (Clear); Urine Color Yellow; Urine Glucose Negative (Negative); Urine Ketone 2+ (Negative); Urine Leukocyte Negative (Negative); Urine Nitrite Negative (Negative); Urine Occult Blood Trace (Negative); Urine Urobilinogen Negative (Neg - 1+)
[2023-05-08] MEDS: TRANDATE 10 MG IV (07:42)
[2023-05-08] MEDS: THIAMINE INJECTION 200 MG IV ×2 (07:42→19:30)
[2023-05-08] MEDS: FOLVITE 1 MG PO (07:43)
[2023-05-08] MEDS: ARMOUR THYROID 60 MG PO (07:43)
[2023-05-08 07:56] LABS: Amphetamines Positive (Negative); Barbiturates Negative (Negative); Benzodiazepines Positive (Negative); Buprenorphine Negative (Negative); Cocaine Negative (Negative); Marijuana Negative (Negative); Methadone Negative (Negative); Methamphetamines Negative (Negative); Opiates Negative (Negative); Phencyclidine Negative (Negative); Tricyclic Antidepressants Negative (Negative)
--- NOTE | 2023-05-08 07:58 | W.PN.HOSP.TC ---
Today's Communication/Plan
-
see plan
Assessment / Plan
Assessment / Plan
57y F with PMH significant for hypertension, hypothyroidism and chronic hyponatremia who presents to ED complaining of headache, dizziness, fatigue and chest pain.
Gen: NAD, AAOx3.
Eyes: EOMI, PERRLA, no scleral icterus.
Neck: supple.
CV: RRR, +S1/S2, no m/r/g.
Resp: CTAB, no rales, wheezes, or rhonchi.
Abd: +BS, soft, NT, ND
Skin: No rashes.
Neuro: CN 2-12 intact, non-focal.
Psych: Normal mood and affect.
CT brain: There is mild diffuse cortical atrophy with moderate nonspecific white matter changes�
Severe Acute on chronic hyponatremia:
�- Initial Na level = 114, now 115
�- s/p 3% saline infusion overnight and follow serial sodium levels.
�- Adjust salt / fluid intake for gradual correction.
�- c/s Nephrology
�- Holding culprit medications (Lexapro / Trazodone).
�- STATION MASTER process may be contributing to chronic component of hypoNa.
- fasting cortisol and TSH normal
Chest pressure:
- repeat trop (initial trop NEG)
- no acute ischemic changes on ECG this AM
Uncontrolled Hypertension
�- Patient reports long history of poor BP control and reported med intolerances to many BP agents in the past.
�- Currently on only very low-dose lisinopril.
�- Labetalol given in the ED with improvement.
�- Normal troponin, SCr, etc.
�- Follow BP and give additional labetalol PRN for very high pressures.
�- c/s Nephrology
- Start Procardia XL 60mg daily
Abnormal STATION MASTER Imaging
�- CT head done in the ED with multiple and bilateral abnormalities - potentially c/w prior CVAs, etc.
�- Reviewed with patient who reports prior 'misdiagnosis' of MS.
�- Had MRI at [place] reporting demyelinating lesions.� Extensive and detailed evaluation at [place] following this showed no evidence of MS.
�- Repeat MRI for further evaluation of these lesions.
�- Neurology evaluation.
Muscle Cramping
�- likely secondary to fluid / salt imbalance.
�- Follow for improvement with Na correction.
�- Heat application to extremities.� Valium PRN for spasms / cramping.
Anxiety / Depression
�- Significant recent social stressors with relocation, separation, etc.
�- Continue quetiapine for now.
�- Holding escitalopram and trazodone given severe hyponatremia.
Alcohol Abuse Disorder
�- Patient reports daily alcohol use - 2 drinks per day.
�- Monitor for any symptoms of withdrawal during visit.
�- BZDs if needed based on MSAS.
�- Thiamine, folate replacements.
FULL/SCDs/Lovenox
Anticipated Discharge: > 48 hours
Subjective/Interval History
-
Date of Service: May 08, 2023
Pt reports chest tightness that she says is due to her high blood pressure.
Objective Data
-
Labs:
Laboratory Results
05/07/23 05/08/23 05/08/23
21:32 01:12 02:50
WBC 8.1
Hgb 14.1
Hct 38.7
Plt Count 256
PT 14.6
INR 1.16
APTT 30.5
Sodium 114 L* 115 L*
Potassium 4.1
Chloride 82 L
Carbon Dioxide 23
BUN 6 L
Creatinine 0.4 L
Glucose 112 H
Calcium 9.5
Total Bilirubin 0.6
AST 57 H
ALT 35
Alkaline Phosphatase 55
05/08/23 05/08/23 05/08/23
06:00 06:00 10:08
WBC 8.5
Hgb 14.7
Hct 40.1
Plt Count 269
PT
INR
APTT
Sodium 115 L* 115 L* Pending
Potassium 4.0
Chloride 85 L
Carbon Dioxide 20 L
BUN 5 L
Creatinine 0.3 L
Glucose 117 H
Calcium 9.3
Total Bilirubin
AST
ALT
Alkaline Phosphatase
Vital Signs:
Vital Signs
Temp Pulse Resp BP Pulse Ox
97.9 F 72 12 174/104 98
05/08/23 07:51 05/08/23 06:15 05/08/23 06:15 05/08/23 06:00 05/08/23 06:15
I&O
05/07/23 05/08/23 05/09/23
06:59 06:59 07:59
Intake Total 750 / 770
Output Total 1200 / 1200
Balance -450 / -430
--- NOTE | 2023-05-08 08:01 | PTCARENOTE ---
MSAS 0. PRN Labetalol given for BP 183/108
--- NOTE | 2023-05-08 08:09 | CON.NEURO ---
Neuro Assessment/Plan
Assessment
IMPRESSIONS/RECOMMENDATIONS:
Abrupt onset cramping in legs bilaterally, in a patient with a prior evaluation for multiple sclerosis in 2016 which was unremarkable
Most likely due to metabolic challenges based on its acute onset and offset with therapy and improvement of metabolic challenges
Plan
Supportive care
Modifying sodium may be of assistance
Rizatriptan for headache control
Will continue to follow as needed.
Consultation
Order
Date of Consultation: 05/08/23
Requesting Provider: Hospitalist
Reason for Consult: Leg cramping
Subjective/Objective
Subjective Data
Date of Service: May 08, 2023
'I was misdiagnosed with MS.'
Patient presented to this hospital's emergency department last night due to multiple symptoms including dizziness, headache, and diaphoresis. Patient was found to have significant hyponatremia and was admitted for further evaluation and treatment.
By prior records: The patient is right-handed and presented to the [facility] to numbness in the right foot and spread to face and hand on the right. Symptoms had started in 2014 possible multiple sclerosis. In 2010, the patient
had an episode of burning discomfort in the right eye and was diagnosed with a corneal erosion.
Past, the patient had an MRI of the brain in 2005 and more than 1 study performed in 2016 as an 6 there were no contrast-enhancing lesions and there were an increase in in the number of lesions in 2016 during the first MRI performed.
According to medical records from [facility] neurology ([place]), patient was last evaluated in 2016 symptoms including right foot weakness, fleeting discomfort in abdomen, paresthesias over the face and head. The patient had undergone MRI of the brain and
cervical spine with and without contrast which demonstrated multiple signal abnormalities and deep white matter subcortically had not changed and she had no contrast-enhancing lesions. The outside letter indicated that the patient had undergone
blood work and CSF evaluation which were unremarkable including negative oligoclonal bands, and anti-AQP4 antibodies. Patient had an OCT test which was normal. Patient was informed that she should return if symptoms worsened.
Patient reports having had headaches routinely prior to menopause.
Patient also reported the sense of bilateral lower extremity cramping beginning at the time of additional symptomatology including diaphoresis. The patient was provided diazepam twice during this hospitalization which she reports has completely
resolved the symptomatology.
Objective Data
Vital Signs
Temp Pulse Resp BP Pulse Ox
36.6 C 63 16 150/97 96
05/08/23 07:51 05/08/23 08:00 05/08/23 08:00 05/08/23 08:00 05/08/23 08:00
Lab Results
05/08/23 06:00
PT 14.6 Sec (11.4-14.6) 05/08/23 01:12
INR 1.16 05/08/23 01:12
APTT 30.5 Sec (23.4-35.0) 05/08/23 01:12
Sodium 115 mmol/L (135-145) L* 05/08/23 06:00
Sodium 115 mmol/L (135-145) L* 05/08/23 06:00
Potassium 4.0 mmol/L (3.5-5.1) 05/08/23 06:00
BUN 5 mg/dl (7-17) L 05/08/23 06:00
Glucose 117 mg/dl (70-99) H 05/08/23 06:00
Calcium 9.3 mg/dl (8.4-10.2) 05/08/23 06:00
Phosphorus 3.8 mg/dl (2.5-4.5) 05/08/23 06:00
Ur Buprenorphine Negative (Negative) 05/08/23 07:20
Patient Allergies
sulfamethoxazole [From Bactrim] Allergy (Verified 05/07/23 20:25)
Itching
trimethoprim [From Bactrim] Allergy (Verified 05/07/23 20:25)
Itching
Review of Systems
-
History Source: Patient
All other systems: Reviewed and negative
EENT: Negative Decreased Vision or Swallowing Difficulty
Respiratory: Negative Trouble Breathing
Cardiac: Chest Pain
Abdomen/GI: Negative Incontinence of Stool
Genitourinary: Negative Incontinence
Musculoskeletal: Negative Back Pain or Neck Pain
Neuro: Headache (posterior is usual, last night was frontal); Negative Dizzy
Physical Exam
-
General: No Apparent Distress and Appears Stated Age
Eyes: OU Absent Papilledema, Round OU, [place] Conjunctivae and No Ptosis
HEENT: Anicteric and Moist Mucous Membranes
Neck: Full Range of Motion
Respiratory: No Dyspnea
Cardiac: No JVD
GI: Non-distended
Skin: Unremarkable
Extremities: No Clubbing, No Cyanosis and No Edema
Psych: Negative Intact Judgement/Insight
Extended Neurological Exam
Mood & Affect: Mood Unremarkable and Affect Unremarkable (Somatic)
Attention Span & Concentration: Awake, Alert, Interactive and No Difficulty with 2 Step Request
Memory: Unremarkable
Tremor: Hand Tremor Absent and Head Tremor Absent
Involuntary Movement: None
Speech: Quality Unremarkable and Quantity Unremarkable
Cranial Nerve II: Left Eye: Pupillary Reactivity Unremarkable, Pupillary Size Unremarkable and Visual Romero Grossly Intact
Cranial Nerve II: Right Eye: Pupillary Reactivity Unremarkable, Pupillary Size Unremarkable and Visual Romero Grossly Intact
Cranial Nerves III, IV, : Extraocular Movement: Extraocular Movement Full in all Directions
Cranial Nerve VII: Facial Symmetry: Normal Facial Symmetry
Cranial Nerve VIII: Hearing: Unremarkable Hearing to Normal Conversational Volume
Cranial Nerves IX, X: Palate Movement: Palate Elevation Symmetric
Cranial Nerve XI: Shoulder Shrug: Unremarkable
Cranial Nerve XII: Tongue Protusion: Midline
Muscle Strength, Overall: Full Throughout
Muscle Bulk & Tone: Bulk Unremarkable and Tone Unremarkable
Pronator Drift: No Drift in Upper Extremities
Deep Tendon Reflexes: Unremarkable Throughout
Touch Sensation: Unremarkable
Coordination: [id number]-[id number]-[id number] Testing Unremarkable
Babinski Sign: Absent Bilaterally
Data Reviewed
-
CT Head: Report Reviewed
Labs: Report Reviewed
Reviewed with: Nurse and Patient
Old Records: Summarized
Medications
-
Active Medications
Generic Name Dose Route Start Last Admin
Trade Name Freq PRN Reason Stop Dose Admin
Acetaminophen 650 mg 05/08/23 02:08
Acetaminophen 325 Mg Tablet PO 06/05/23 02:07
Q4HPRN PRN
Mild Pain / Temp > 101
Diazepam 5 mg 05/08/23 02:08
Diazepam 5 Mg Tablet PO 06/05/23 02:07
TIDPRN PRN
Muscle spasms / anxiety
Enoxaparin Sodium 40 mg 05/08/23 09:00
Enoxaparin Sodium 40 Mg/0.4 Ml Syringe SC 06/05/23 08:59
DAILY ÁNGEL
Folic Acid 1 mg 05/08/23 08:00 05/08/23 07:43
Folic Acid 1 Mg Tablet PO 06/05/23 07:59 1 mg
DAILY ÁNGEL Administration
Hydromorphone HCl 0.5 mg 05/08/23 02:08 05/08/23 02:36
Hydromorphone 0.5 Mg/0.5 Ml Syringe IV 05/22/23 02:07 0.5 mg
Q4HPRN PRN Administration
severe pain
Sodium Chloride 250 mls @ 20 mls/hr 05/07/23 23:00 05/07/23 23:36
Sodium Chloride 3% IV 05/08/23 11:29 250 mls
ONCE ONE Administration
Folic Acid 1 mg/ Sodium 50.2 mls @ 200.8 mls/hr 05/08/23 02:08
Chloride IV 06/05/23 02:07
DAILYPRN PRN
if NPO
Labetalol HCl 10 mg 05/08/23 02:08 05/08/23 07:42
Labetalol Hcl 5 Mg/1 Ml (20 Mg/4 Ml) Injection IV 06/05/23 02:07 10 mg
Q6HPRN PRN Administration
SBP > 180, DBP > 110
Lorazepam 1 mg 05/08/23 02:08 05/08/23 06:31
Lorazepam 1 Mg Tablet PO 06/05/23 02:07 1 mg
Q2HPRN PRN Administration
MSAS 5-7
Lorazepam 1 mg 05/08/23 02:08
Lorazepam 2 Mg/Ml Vial IV 06/05/23 02:07
Q1HPRN PRN
MSAS 8-11
Lorazepam 2 mg 05/08/23 02:08
Lorazepam 2 Mg/Ml Vial IV 06/05/23 02:07
Q1HPRN PRN
MSAS > 11
Nifedipine 60 mg 05/08/23 09:00
Nifedipine 60 Mg Extended Release Tablet PO 06/05/23 08:59
DAILY ÁNGEL
Quetiapine Fumarate 50 mg 05/08/23 22:00
Quetiapine 100 Mg Tablet PO 06/05/23 21:59
HS ÁNGEL
Sodium Chloride 0 ml 05/08/23 02:08
Sodium Chloride 0.9% (Preservative Free) 10 Ml Vial IV 06/05/23 02:07
PRN PRN
To dilute IV Ativan
Protocol
Sodium Chloride 0 flush 05/08/23 03:00
Sodium Chloride 0.9% (Flush) Syringe IV 06/05/23 02:59
PER PROTOCOL ÁNGEL
Thiamine HCl 200 mg 05/08/23 08:00 05/08/23 07:42
Thiamine (100 Mg/Ml) 2 Ml Vial IV 05/10/23 20:01 200 mg
Q12 ÁNGEL Administration
Thiamine HCl 100 mg 05/11/23 08:00
Thiamine 100 Mg Tablet PO 06/08/23 07:59
BID ÁNGEL
Thyroid 60 mg 05/08/23 08:00 05/08/23 07:43
Thyroid 60 Mg (1 Grain) Tablet PO 06/05/23 07:59 60 mg
DAILY ÁNGEL Administration
Home Medications
Medication Instructions Recorded
Lactobac no.2-Bifidobac no.1-S. 1 cap PO DAILY 05/07/23
thermo 112.5 billion cell capsule
(Visbiome)
cyclosporine 0.05 % eye drops in a 1 drp BOTH EYES Q12H 05/07/23
dropperette (Restasis)
dextroamphetamine-amphetamine 20 10 mg PO BID@0800,1200 05/07/23
mg tablet (Adderall)
escitalopram oxalate 10 mg tablet 10 mg PO DAILY 05/07/23
(Lexapro)
lisinopril 2.5 mg tablet 2.5 mg PO DAILY@1500 05/07/23
polyethylene glycol 3350 17 gram 17 g PO DAILY 05/07/23
oral powder packet (Miralax)
quetiapine 100 mg tablet (Seroquel) 50 mg PO HS 05/07/23
therapeutic multivitamin 1 tab PO DAILY 05/07/23
thyroid (pork) 60 mg tablet 60 mg PO DAILY 05/07/23
([place] Thyroid)
trazodone 150 mg tablet 225 mg PO HS 05/07/23
Past History
Past History
ED Past Medical History: HTN, Hypothyroidism, Psychiatric (Generalized anxiety and depression, ADHD) and Other (Endometriosis, migraine, chronic hyponatremia)
ED Past Surgical History: Orthopedic (Right knee arthroscopy) and Other (Breast implantations)
Social History
Tobacco: Non-smoker
Alcohol: Daily
Personal: ()
Family History
Family History: Other (Reviewed and noncontributory)
[2023-05-08 08:24] LABS: Fentanyl, Urine Negative (Negative)
[2023-05-08] MEDS: LOVENOX 40 MG SC (10:13)
[2023-05-08] MEDS: PROCARDIA XL (EXTENDED RELEASE) 60 MG PO (10:14)
[2023-05-08] MEDS: SODIUM CHLORIDE 3% 250 IV (10:14)
[2023-05-08] MEDS: MAXALT MLT (ORALLY DISINTEGRATING) 10 MG PO (10:14)
[2023-05-08 10:54] LABS: Sodium 116 mmol/L (135-145)
--- NOTE | 2023-05-08 11:00 | CM ---
CM following re: discharge planning.
Reviewed pt's chart, met with pt.
Pt is a 57 year old female, admitted with primary dx of Severe Acute on chronic hyponatremia.
Pt reports she just moved to [place] from [facility], lives alone in an apartment, no steps to enter. 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
mother, friends, nephews. nieces. Pt admitted to suffering from major depression, has been in stressful situation related to moving from a place where she has been lives for 23 years, has been on psychotropic medications for years. Psychiatrist:
[facility].
CM consult for substance abuse counseling noted. Pt denied substance abuse problem. She stated she takes prescribed medications and she has up to 2 glasses of wine daily. Pt stated she will reduce her wine drinking habit to 2-3 glasses per week. Pt
declined [facility] referral.
PCP: Gayle Denton
Pharmacy: [facility].
D/C plan: home with no needs. pt stated her sister or mother will transport home at discharge.
CM will follow with discharge plan updates as hospitalization progresses
[2023-05-08 11:06] LABS: Troponin I 0.024 ng/ml
--- NOTE | 2023-05-08 12:03 | W.CON.NEPH ---
Consultation
-
Date/Time Consultation Requested: 05/08/23 3:08AM
Date/Time Consultation Performed: 05/08/23 12:04PM
Requesting Provider: Arnold Fallon
Performing Provider: Funmi Fitzgerald
Reason for Consultation: Hyponatremia
Medical History
-
Chief Complaint: hyponatremia
History of Present Illness:
Ms. Bridges is a 57YOF with PMH of endometriosis, migraine headaches, uncontrolled HTN who presents to the ED due to high blood pressure, dizziness and headache. She states that the symptoms were acute, worsening over the course of the day yesterday.
She denies similar episodes. She also endorses some mild chest pain yesterday, completely resolved today. She states that she has been underogoing a great deal of stress after ending a 20 year relationship and has moved from her home to an apartment
in [facility]. She was noted to be severely hyponatremic to 114 and thus nephrology was consulted for further management. She states that she has been eating and drinking well. Drinks 6-7 glasses of water/day. Denies new medications.
Past Medical History
HTN - poorly controlled recently. on lisinopril 2.5 at home
depression: on escitaloproam 10mg, seroquel and trazodone
Past Surgical History: Other (ex lap for endometriosis)
Social History
Tobacco: Non-Smoker
Alcohol: Daily (2+ drinks of vodka a day)
Drug: None
Personal:
Living: Alone
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
Family History
Family History: Not Pertinent
Allergies / Home Medications
Allergy/AdvReac Type Severity Reaction Status Date / Time
sulfamethoxazole Allergy Itching Verified 05/07/23 20:25
[From Bactrim]
trimethoprim [From Bactrim] Allergy Itching Verified 05/07/23 20:25
Medication Instructions Recorded Confirmed Type
Lactobac no.2-Bifidobac no.1-S. 1 cap PO DAILY 05/07/23 05/07/23 History
thermo 112.5 billion cell capsule
(Visbiome)
cyclosporine 0.05 % eye drops in a 1 drp BOTH EYES Q12H 05/07/23 05/07/23 History
dropperette (Restasis)
dextroamphetamine-amphetamine 20 10 mg PO BID@0800,1200 05/07/23 05/07/23 History
mg tablet (Adderall)
escitalopram oxalate 10 mg tablet 10 mg PO DAILY 05/07/23 05/07/23 History
(Lexapro)
lisinopril 2.5 mg tablet 2.5 mg PO DAILY@1500 05/07/23 05/07/23 History
polyethylene glycol 3350 17 gram 17 g PO DAILY 05/07/23 05/07/23 History
oral powder packet (Miralax)
quetiapine 100 mg tablet (Seroquel) 50 mg PO HS 05/07/23 05/07/23 History
therapeutic multivitamin 1 tab PO DAILY 05/07/23 05/07/23 History
thyroid (pork) 60 mg tablet 60 mg PO DAILY 05/07/23 05/07/23 History
([place] Thyroid)
trazodone 150 mg tablet 225 mg PO HS 05/07/23 05/07/23 History
Review of Systems
-
History Source: Patient
All other systems: Negative unless noted
Constitutional: Fatigue
EENT: No Symptoms
Respiratory: No Symptoms
Cardiac: Chest Pain
Abdomen/GI: Abdominal Pain and Nausea
: No Symptoms
Musculoskeletal: No Symptoms
Skin: No Symptoms
Neurological: Dizzy, Headache and Weakness
Physical Exam
Vital Signs
Vital Signs
Temp Pulse Resp BP Pulse Ox
97.9 F 72 14 160/97 98
05/08/23 07:51 05/08/23 10:45 05/08/23 10:45 05/08/23 10:00 05/08/23 10:45
Lab Results
WBC 8.5 10^3/uL (4.8-10.8) 05/08/23 06:00
RBC 4.99 10^6/uL (4.20-5.40) 05/08/23 06:00
Hgb 14.7 g/dL (12.0-16.0) 05/08/23 06:00
Hct 40.1 % (37.0-47.0) 05/08/23 06:00
Plt Count 269 10^3/uL (130-400) 05/08/23 06:00
Sodium 116 mmol/L (135-145) L* 05/08/23 10:21
Potassium 4.0 mmol/L (3.5-5.1) 05/08/23 06:00
Chloride 85 mmol/L (98-107) L 05/08/23 06:00
Carbon Dioxide 20 mmol/L (22-30) L 05/08/23 06:00
BUN 5 mg/dl (7-17) L 05/08/23 06:00
Creatinine 0.3 mg/dL (0.6-1.0) L 05/08/23 06:00
eGFR > 60.00 05/08/23 06:00
Glucose 117 mg/dl (70-99) H 05/08/23 06:00
Calcium 9.3 mg/dl (8.4-10.2) 05/08/23 06:00
Phosphorus 3.8 mg/dl (2.5-4.5) 05/08/23 06:00
Albumin 5.6 g/dl (3.5-5.0) H 05/07/23 21:32
Physical Exam
General: AOx3, No Distress and Nontoxic
HEENT: PERRL and EOMI
Respiratory: Clear
Cardiac: S1/S2, Regular Rate/Rhythm and No Edema
Breast: Deferred by me
Abdomen: Soft, Nontender and Nondistended
Rectal: Deferred by Provider
Genito-urinary: No Costovertebral Tender
Musculoskeletal: No Edema
Skin: No Rash, Warm, Dry and No Clubbing
Neuro: Nonfocal/Grossly Intact
Psych: Mood/afflect pleasant, Insight/judgement good and Appropriate
Assessment/Plan
-
Assessment:
Hyponatremia
HTN
hypothryrodisim
Depression
Plan:
- Na on presentation 114, initiated on HTS at 20cc/hr. Na to 115 this AM. I will increase gtt to 30cc/hr
- urine studies notable for Na osm 332 and Na 143 --> likely SIADH
- hold antidepression medications
- TSH wnl, cortisol wnl
- goal sodium to be 121-124 by tomorrow AM
- please check Na q6h. increase gtt rate if patient not meeting goal
Data Reviewed
-
Radiology: Image Personally Visualized and interpreted (no acute cardiopulmonary process)
CT Scan: Report Reviewed by me
Labs: Labs Reviewed by me, Discussed with Physician and Discussed with Patient
Old Records: Reviewed
[2023-05-08] MEDS: TYLENOL 650 MG PO (13:55)
--- NOTE | 2023-05-08 15:15 | PTCARENOTE ---
MSAS 0. Poor appetite. Denies leg cramping. PRN Tylenol given for c/o h/a. All other assessments unchanged.
[2023-05-08 17:37] LABS: Blood Urea Nitrogen 6 mg/dl (7-17); Calcium 7.3 mg/dl (8.4-10.2); Carbon Dioxide 17 mmol/L (22-30); Chloride 97 mmol/L (98-107); Estimated Creatinine Clearance 90 ml/min; Glucose 128 mg/dl (70-99); Potassium 2.9 mmol/L (3.5-5.1); Sodium 121 mmol/L (135-145); eGFR > 60.00
[2023-05-08 20:00] LABS: Blood Urea Nitrogen 8 mg/dl (7-17); Calcium 9.4 mg/dl (8.4-10.2); Carbon Dioxide 22 mmol/L (22-30); Chloride 90 mmol/L (98-107); Estimated Creatinine Clearance 90 ml/min; Glucose 100 mg/dl (70-99); Potassium 3.2 mmol/L (3.5-5.1); Sodium 122 mmol/L (135-145); eGFR > 60.00
--- NOTE | 2023-05-08 20:29 | PTCARENOTE ---
Pt Aox3, VSS, BP 137/81, NSR on monitor, c/o headache 4/10 PRN Tylenol as needed. OOB to bathroom stand by assist, no complaints of dizziness. labs-q6hrs.
[2023-05-08] MEDS: KCL 40 MEQ PO (21:55)
[2023-05-08] MEDS: SEROQUEL 50 MG PO (21:55)
[2023-05-09] VITALS (18 sets, daily range): BP systolic 95–174; BP diastolic 61–108; PULSE 76–97; BMI 19.2
--- NOTE | 2023-05-09 | PTCARENOTE ---
Pt assessment unchanged VSS, NSR on monitor, K 3.2 replaced with 40meq Po potassium.
[2023-05-09 04:30] LABS: Blood Urea Nitrogen 10 mg/dl (7-17); Calcium 9.8 mg/dl (8.4-10.2); Carbon Dioxide 23 mmol/L (22-30); Chloride 97 mmol/L (98-107); Estimated Creatinine Clearance 90 ml/min; Glucose 105 mg/dl (70-99); Potassium 4.3 mmol/L (3.5-5.1); Sodium 129 mmol/L (135-145); eGFR > 60.00
--- NOTE | 2023-05-09 05:35 | PTCARENOTE ---
Pt sodium 129, goal 121-124, D5w @100ml/hr ordered.
[2023-05-09] MEDS: D5W 1000 IV ×2 (05:39→21:02)
--- NOTE | 2023-05-09 07:19 | W.PN.INTV ---
Today's Communication / Plan
Recommendations
Off 3% overnight, Na increase noted, was placed on D5W
Hold IVF and repeat labs
Encourage PO intake, limit free water intake
SSRI and thyroid replacement may need to be evaluated if contributing
Transfer to tele if Na remains >120, we will sign off upon transfer
Assessment
-
Patient is a 57 year old F with PMH significant for endometriosis, migraine headaches and uncontrolled HTN presenting to ED with acute onset dizziness, headache, diaphoresis and cramping pain x 1 day.� In the ED, patient found to be severely
hyponatremic, with serum sodium 114.� She states that she has chronic hyponatremia but does not know baseline level. She is placed on 3% saline and admitted to ICU for profound electrolyte abnormality.
Symptomatic, acute on chronic, severe hyponatremia, Na 114
Possible related to daily large water ingestion superimposed on chronic hyponatremia from SSRIs
Dizziness, headache, diaphoresis and cramping pain
Mild metabolic acidosis
Hypochloremia
Conditions present [employer] IN NURSING
Endometriosis
Migraine headaches
HTN
Plan
No current signs of metabolic encephalopathy or MS changes/following commands
Psychiatric history noted above including anxiety/depression on SSRI
She has been told in the past that her Na was from her meds
She does drink water everyday as she notes she exercises daily
About 2L per day, on top of chronic low levels
Placed on 3% saline, initial head CT neg
Denies pain at this time.
Pain/sedation: PRN
RASS goals: 0
Hemodynamically stable, not requiring pressors.
Cardiac history reviewed--HTN
No prior ECHO for review
Resume home meds as tolerated
Monitor on telemetry
Oxygen needs: stable on RA
Prior history of lung disease: none
Supplemental O2 as indicated to maintain sats > 89%
CXR/CT reviewed indicating NAD, repeat at needed
Advance diet as tolerated
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
Aspiration precautions, HOB > 30 degrees
Speech therapy eval can be considered if at elevated risk
GI prophylaxis if indicated for mechanical ventilation >48 hours, prior history of GERD, stress ulcer formation in the critically ill
Severe hyponatremia noted, on 3%
Replete electrolytes as needed--low Na
Renal consult, may be dilutional from daily large water intake
Acid/base status: mild acidosis, low Cl, replete with 3%
Was told chronic low Na from SSRIs
Repeat labs q4 until >120, she is now on D5W, repeat labs
Creat at baseline, no history of renal disease
Void trials
Follow urine output, critical I/Os
No signs/symptoms suspicious for infectious etiology at this time
Observe off antibiotics for now
Follow fever trend, WBC count
CBC stable, no signs of bleeding or coagulopathy.
DVT prophylaxis as assessed based on risk, including mechanical SCDs
Can transfuse if indicated for Hb <7, plt < 10
No prior h/o diabetes
Monitor accuchecks PRN/SS coverage if needed
H/o thyroid disease, resume home meds
Can likely transfer to floors if Na remains >120. We will sign off upon transfer
Diagnostic Data
Chest X-Ray: 05/08/[address] Scan: HEAD 05/08/23- There are no acute abnormalities. There is no intracranial hemorrhage. There is no edema or mass effect to suggest neoplasm. There are no abnormal extra-axial fluid c collections. There are no focal areas of diminished density
to suggest infarct. There is mild diffuse cortical atrophy as evidenced by prominence of the CSF spaces. Additionally, there are patchy patchy areas of low density in the periventricular and subcortical white matter bilaterally. These white matter
changes are nonspecific and may be ischemic, degenerative or demyelinating in origin.
Echo:
PFT's:
Reports and relevant images were personally reviewed.
-----
Critical Care time 35 mins -- The patient is admitted for acute critical illness for the treatment of vital organ failure and/or prevention of further life-threatening conditions. Total care includes time spent in review of history, physical exam,
medications, hemodynamic/ventilator parameters, laboratory data, imaging and discussion with house staff, pharmacy, respiratory therapy, co founder and director, and nursing.
Subjective Dataa
Subjective Data
Date of Service:
Date of Service: May 09, 2023
Chief Complaint: [place] Follow Up
Subjective:
doing well this AM, no new complaints
Na has increased to 129 off 3% overnight, now on d5W
Objective Data
Data Reviewed
Vital Signs / I&O / Oxygen:
Vital Signs
Temp Pulse Resp BP Pulse Ox
98.1 F 71 18 124/78 98
05/09/23 03:52 05/09/23 05:15 05/09/23 05:15 05/09/23 05:00 05/08/23 20:34
Intake and Output
05/08/23 05/09/23 05/10/23
05:59 06:59 06:59
Intake Total
Output Total
Balance
SaO2 98
Physical Exam
General: Comfortable and Other (NAD)
HEENT: Normocephalic, Anicteric and Moist Mucous Membranes
Cardiovascular: S1-S2 and Regular Rhythm
Respiratory: Clear and Non-Labored Respirations
GI: Soft, Non Distended and Non Tender
Neurology: Awake, Alert, Oriented, AO x 3 and No Motor Deficits
Skin: Warm, Dry and Good Color
Labs/Micro/Reports
Lab Data
05/08/23 06:00
[2023-05-09] MEDS: FOLVITE 1 MG PO (09:15)
[2023-05-09] MEDS: THIAMINE INJECTION 200 MG IV ×2 (09:15→21:02)
[2023-05-09] MEDS: PROCARDIA XL (EXTENDED RELEASE) 60 MG PO (09:15)
[2023-05-09] MEDS: ARMOUR THYROID 60 MG PO (09:15)
[2023-05-09] MEDS: LOVENOX 40 MG SC (09:15)
--- NOTE | 2023-05-09 10:33 | W.PN.HOSP.TC ---
Today's Communication/Plan
-
see bold
Assessment / Plan
Assessment / Plan
57y F with PMH significant for hypertension, hypothyroidism and chronic hyponatremia who presents to ED complaining of headache, dizziness, fatigue and chest pain.
Gen: NAD, AAOx3.
Eyes: EOMI, PERRLA, no scleral icterus.
Neck: supple.
CV: Remains RRR, +S1/S2, no m/r/g.
Resp: Remains CTAB, no rales, wheezes, or rhonchi.
Abd: Remains +BS, soft, NT, ND
Skin: No rashes.
Neuro: CN 2-12 intact, non-focal.
Psych: Normal mood and affect.
CT brain: There is mild diffuse cortical atrophy with moderate nonspecific white matter changes�
Severe Acute on chronic hyponatremia:
-likely due to SIADH
-Initial Na level = 114, now 129 after 3% saline infusion. D5W infusion started to counter overcorrection.
-renal following
-cont to trend Na
-Lexapro/Trazodone remain on hold
-fasting cortisol and TSH normal
Chest pressure:
-Trop NEG x 2
-no acute ischemic changes on ECG this AM
Uncontrolled Hypertension:
-Patient reports long history of poor BP control and reported med intolerances to many BP agents in the past. 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
-start on Procardia XL 60mg daily
Abnormal COMPANY ACCOUNTANT Imaging:
�- CT head done in the ED with multiple and bilateral abnormalities - potentially c/w prior CVAs, etc.
�- Reviewed with patient who reports prior 'misdiagnosis' of MS.
�- Had MRI at [place] reporting demyelinating lesions.� Extensive and detailed evaluation at [place] following this showed no evidence of MS.
�- Repeat MRI for further evaluation of these lesions (reordered)
�- Neurology following
Muscle Cramping
�- likely secondary to fluid / salt imbalance.
�- Follow for improvement with Na correction.
�- Heat application to extremities.� Valium PRN for spasms / cramping.
Anxiety / Depression
�- Significant recent social stressors with relocation, separation, etc.
�- Continue quetiapine for now.
�- Holding escitalopram and trazodone given severe hyponatremia.
Alcohol Abuse Disorder
�- Patient reports daily alcohol use - 2 drinks per day.
�- Monitor for any symptoms of withdrawal during visit.
�- BZDs if needed based on MSAS.
�- Thiamine, folate replacements.
FULL/SCDs/Lovenox
Anticipated Discharge: > 48 hours
Subjective/Interval History
-
Date of Service: May 09, 2023
Patient reports that she has right-sided chest pressure today. Denies shortness of breath.
Objective Data
-
Labs:
Laboratory Results
05/09/23 05/09/23 05/09/23
00:00 03:53 09:34
Sodium Cancelled 129 L Pending
Potassium Cancelled 4.3 D Pending
Chloride Cancelled 97 L Pending
Carbon Dioxide Cancelled 23 Pending
BUN Cancelled 10 Pending
Creatinine Cancelled 0.5 L Pending
Glucose Cancelled 105 H Pending
Calcium Cancelled 9.8 Pending
05/09/23 05/09/23 05/09/23
10:00 12:00 14:00
Sodium Pending Cancelled Pending
Potassium Pending Cancelled Pending
Chloride Pending Cancelled Pending
Carbon Dioxide Pending Cancelled Pending
BUN Pending Cancelled Pending
Creatinine Pending Cancelled Pending
Glucose Pending Cancelled Pending
Calcium Pending Cancelled Pending
05/09/23 05/09/23
18:00 22:00
Sodium Pending Pending
Potassium Pending Pending
Chloride Pending Pending
Carbon Dioxide Pending Pending
BUN Pending Pending
Creatinine Pending Pending
Glucose Pending Pending
Calcium Pending Pending
Vital Signs:
Vital Signs
Temp Pulse Resp BP Pulse Ox
97.5 F 76 17 154/105 98
05/09/23 07:40 05/09/23 10:15 05/09/23 10:15 05/09/23 10:00 05/08/23 20:34
I&O
05/08/23 05/09/23 05/10/23
05:59 06:59 06:59
Intake Total
Output Total
Balance
--- NOTE | 2023-05-09 11:07 | PTCARENOTE ---
Unable to get labs after multiple RNs attempted. Phlebotomy notified and coming to draw labs.
[2023-05-09 11:40] LABS: Blood Urea Nitrogen 8 mg/dl (7-17); Calcium 9.7 mg/dl (8.4-10.2); Carbon Dioxide 23 mmol/L (22-30); Chloride 100 mmol/L (98-107); Estimated Creatinine Clearance 87 ml/min; Glucose 98 mg/dl (70-99); Potassium 4.1 mmol/L (3.5-5.1); Sodium 129 mmol/L (135-145); eGFR > 60.00
--- NOTE | 2023-05-09 11:57 | W.PN.NEPH.PH ---
Today's Communication / Plan
-
- Na overcorrected
- DDAV+ D5W
Assessment/Plan
-
Assessment:
Hyponatremia
HTN
hypothryrodisim
Depression
Plan:
- Na on presentation 114, initiated on HTS at 20cc/hr. Na to 115 this AM. I will increase gtt to 30cc/hr
- Na improved to 122 at 19:38, HTS stopped at 17:57.
- Na overcorrected to 129 at 3:53AM check. Initiated D5W at around 5AM
- Na persisted at 129 at 11:17 AM (difficult to obtain labs on this patint)
- Ordered dose of DDAVP and will continue D5W at 100cc/hr. on Recheck goal sodium is 125. If Na is downtrending at next check, please stop D5W gtt
- urine studies notable for Na osm 332 and Na 143 --> likely SIADH
- hold antidepression medications.
- TSH wnl, cortisol wnl
- goal sodium to be 121-124 by tomorrow AM
- please check Na q4h
-
-
Date of Service: May 09, 2023
CC / HPI / ROS
-
Chief Complaint:
hyponatremia
History of Present Illness:
Na to 114 on presentation
Improved very slowly and then overcorrected
Will plan to bring down sodium with DDAVP and D5
Review of Systems:
feeling well
fatigue
no other complaints
Labs
-
Labs:
WBC 8.5 10^3/uL (4.8-10.8) 05/08/23 06:00
RBC 4.99 10^6/uL (4.20-5.40) 05/08/23 06:00
Hgb 14.7 g/dL (12.0-16.0) 05/08/23 06:00
Hct 40.1 % (37.0-47.0) 05/08/23 06:00
Plt Count 269 10^3/uL (130-400) 05/08/23 06:00
eGFR Cancelled 05/09/23 12:00
Phosphorus 3.8 mg/dl (2.5-4.5) 05/08/23 06:00
Albumin 5.6 g/dl (3.5-5.0) H 05/07/23 21:32
Physical Exam
-
Vital Signs:
Vital Signs
Temp Pulse Resp BP Pulse Ox
97.4 F 76 17 154/105 98
05/09/23 11:26 05/09/23 10:15 05/09/23 10:15 05/09/23 10:00 05/08/23 20:34
Cardiovascular:: Regular rate and rhythm
Respiratory:: Bilateral: Coarse
Lung Excursion:: Normal
Abdomen:: Nontender and Soft
Bowel Sounds:: Normal
Extremity Edema:: None: Bilateral:
Jennings Catheter: No
[2023-05-09] MEDS: DDAVP 0.25 MCG IV (13:55)
--- NOTE | 2023-05-09 14:23 | PTCARENOTE ---
Pt AAOx3. Ambulating to bathroom with steady gait. Pt reports feeling very tired. Slept through breakfast. Ate 100% of lunch.
Refusing MRI at this time. States she had a full work up at [facility]. Requests to discuss with Neuro prior. MDs notified. Spoke with facility maintenance technician. Postponed until tomorrow for now.
Remains on D5W @ 100. Ddavp given per order after dosage verified with pharmacy. Phlebotomy paged for BMP redraw.
[2023-05-09 15:24] LABS: Blood Urea Nitrogen 10 mg/dl (7-17); Carbon Dioxide 23 mmol/L (22-30); Chloride 96 mmol/L (98-107); Estimated Creatinine Clearance 87 ml/min; Glucose 128 mg/dl (70-99); Sodium 128 mmol/L (135-145); eGFR > 60.00
[2023-05-09 15:30] LABS: Potassium 4.3 mmol/L (3.5-5.1)
--- NOTE | 2023-05-09 19:30 | PTCARENOTE ---
clipper operator, pt c/o leaking at LW IV site (nothing infusing at this time), RW IV looks slightly puffy/also leaking (IVF infusing). pt difficult stick, IV team contacted for new IV placement and BMP.
--- NOTE | 2023-05-09 21:14 | PTCARENOTE ---
BMP not sent with new IV line- sent now but hemolyzed. phlebotomy contacted to draw lab.
--- NOTE | 2023-05-09 23:00 | PTCARENOTE ---
phlebotomy at bedside to send BMP.
[2023-05-09] MEDS: SEROQUEL 50 MG PO (23:21)
[2023-05-09] MEDS: VALIUM 5 MG PO (23:29)
[2023-05-09 23:38] LABS: Blood Urea Nitrogen 9 mg/dl (7-17); Calcium 9.1 mg/dl (8.4-10.2); Carbon Dioxide 25 mmol/L (22-30); Chloride 94 mmol/L (98-107); Estimated Creatinine Clearance 87 ml/min; Glucose 109 mg/dl (70-99); Potassium 3.7 mmol/L (3.5-5.1); Sodium 123 mmol/L (135-145); eGFR > 60.00
--- NOTE | 2023-05-09 23:44 | PTCARENOTE ---
Dr Fitzgerald made aware of new Na+ result 123, hold IVF per MD.
[2023-05-10] VITALS (24 sets, daily range): BP systolic 127–203; BP diastolic 80–132; BMI 20.8
--- NOTE | 2023-05-10 03:10 | PTCARENOTE ---
no changes in assessment, IV team to come draw am labs.
[2023-05-10] MEDS: D5W IV (04:35)
[2023-05-10 05:36] LABS: Hematocrit 41.5 % (37.0-47.0); Hemoglobin 14.9 g/dL (12.0-16.0); Mean Corp Hgb Conc. 35.9 g/dL (33.0-37.0); Mean Corpuscular Hgb 29.6 pg (27.0-31.0); Mean Corpuscular Volume 82.3 fL (81.0-99.0); Mean Platelet Volume 8.7 fL (7.4-10.4); Platelet Count 242 10^3/uL (130-400); Red Blood Cell Count 5.04 10^6/uL (4.20-5.40); Red Cell Dist. Width 13.2 % (11.5-14.5); White Blood Cell Count 6.2 10^3/uL (4.8-10.8)
[2023-05-10 05:58] LABS: Blood Urea Nitrogen 7 mg/dl (7-17); Calcium 9.2 mg/dl (8.4-10.2); Carbon Dioxide 25 mmol/L (22-30); Chloride 92 mmol/L (98-107); Estimated Creatinine Clearance 94 ml/min; Glucose 95 mg/dl (70-99); Potassium 3.6 mmol/L (3.5-5.1); Sodium 122 mmol/L (135-145); eGFR > 60.00
--- NOTE | 2023-05-10 07:00 | PTCARENOTE ---
received patient at change of shift. Pt sleeping, arouses easily to voice. AAOX3. independent in room. neuro intact. SR on telemetry heart rate 70-80s. pulses palpable. no edema. pt on room air, sat 98%. lung sounds clear. active bowel sounds,
tolerating diet. voiding in bathroom without difficulty. skin intact. see worklist for full nursing assessment and interventions.
[2023-05-10] MEDS: FOLVITE 1 MG PO (08:09)
[2023-05-10] MEDS: PROCARDIA XL (EXTENDED RELEASE) 60 MG PO (08:09)
[2023-05-10] MEDS: ARMOUR THYROID 60 MG PO (08:09)
[2023-05-10] MEDS: THIAMINE INJECTION 200 MG IV ×2 (08:10→20:34)
[2023-05-10] MEDS: LOVENOX 40 MG SC (08:10)
[2023-05-10] MEDS: TRANDATE 10 MG IV (10:43)
--- NOTE | 2023-05-10 10:45 | PTCARENOTE ---
blood pressure 185/112- prn labetolol given
--- NOTE | 2023-05-10 11:16 | W.PN.NEPH.PH ---
Today's Communication / Plan
-
see plan
Assessment/Plan
-
Assessment:
Hyponatremia
HTN
hypothryrodisim
Depression
Plan:
Hyponatremia felt euvolemic acute on chronic and high ADH driven
urine studies notable for Na osm 332 and Na 143 with NS
sodium improving with in goal but low this am despite off hypotonc fluids, repeat labs
if decreasing likely restart 3% saline
may need samsca later , FR 40 ounces/day
TSH and cortisol were ok
Note she was on Lexapro which currently on hold
BP increasing trend, procardia added on 05/07, resume ACEI
d/w nursing
-
-
Date of Service: May 10, 2023
CC / HPI / ROS
-
Chief Complaint:
hyponatremia
History of Present Illness:
Na to 114 on presentation, this am 122 off hypotonic fluids since 11pm
s/p DDAVP on 05/08
BP increasing trend
Review of Systems:
feeling well
fatigue
no other complaints
not baseline yet
Labs
-
Labs:
WBC 6.2 10^3/uL (4.8-10.8) 05/10/23 05:12
RBC 5.04 10^6/uL (4.20-5.40) 05/10/23 05:12
Hgb 14.9 g/dL (12.0-16.0) 05/10/23 05:12
Hct 41.5 % (37.0-47.0) 05/10/23 05:12
Plt Count 242 10^3/uL (130-400) 05/10/23 05:12
Sodium 122 mmol/L (135-145) L 05/10/23 05:12
Potassium 3.6 mmol/L (3.5-5.1) 05/10/23 05:12
Chloride 92 mmol/L (98-107) L 05/10/23 05:12
Carbon Dioxide 25 mmol/L (22-30) 05/10/23 05:12
BUN 7 mg/dl (7-17) 05/10/23 05:12
Creatinine 0.4 mg/dL (0.6-1.0) L 05/10/23 05:12
eGFR > 60.00 05/10/23 05:12
Glucose 95 mg/dl (70-99) 05/10/23 05:12
Calcium 9.2 mg/dl (8.4-10.2) 05/10/23 05:12
Phosphorus 3.8 mg/dl (2.5-4.5) 05/08/23 06:00
Albumin 5.6 g/dl (3.5-5.0) H 05/07/23 21:32
Physical Exam
-
Vital Signs:
Vital Signs
Temp Pulse Resp BP Pulse Ox
98.3 F 83 17 185/112 94
05/10/23 11:04 05/10/23 10:43 05/10/23 08:30 05/10/23 10:43 05/10/23 00:00
Cardiovascular:: Regular rate and rhythm
Respiratory:: Bilateral: CTA
Lung Excursion:: Normal
Abdomen:: Nontender and Soft
Extremity Edema:: None: Bilateral:
Jennings Catheter: No
[2023-05-10] MEDS: ZESTRIL 2.5 MG PO (11:39)
--- NOTE | 2023-05-10 11:45 | PTCARENOTE ---
blood pressure remained high after prn labetolol given, gave ordered dose of lisinopril at this time. notified Dr Penn of blood pressure
[2023-05-10 12:37] LABS: Sodium 124 mmol/L (135-145)
--- NOTE | 2023-05-10 13:03 | W.PN.NEURO.1 ---
Addendum entered and electronically signed by Randy Bridges MD 05/10/23 15:33:
I reviewed the brain MRI images and report.
No acute abnormalities.
There are chronic white matter lesions.
Most likely etiologies are either sequelae from previous Lyme disease and also contribution by migraine headaches.
Patient has normal neurologic examination and has no neurologic symptoms, had extremely thorough workup at [facility] 8 years ago and no neurologic symptoms whatsoever in these past 8 years. Therefore it is almost unthinkable that
she has HOME CONNECT LPN vasculitis.
The lesions are chronic and are not causing the hyponatremia.
Recommendations
-I do think would be prudent to have vascular risk factor control with control of hypertension lipids
-Not recommending any chronic antiplatelet medications
Original Note:
Today's Communication / Plan
-
-Check MRI brain with and without contrast to exclude serious abnormality in the HOME CONNECT LPN that could lead to hyponatremia although this is felt unlikely
-It is expected the patient is most likely going to show abnormal MRI findings of white matter, her extremely thorough workup at [facility] 8 years ago in the absence of any neurologic symptoms in the previous 8 years make active neurologic disease
unlikely, based on her history white matter lesions may be due to previous Lyme disease or migraines
-Continue following and treating hyponatremia
Neuro Assessment/Plan
Assessment
57-year-old woman presented to hospital with constellation of symptoms and found to have severe hyponatremia at 114, is on the whole improving.
Neurologic examination is normal,
CT head noncontrast showed some abnormalities in the parietal lobes bilaterally which appear chronic.
Patient was initially diagnosed with multiple sclerosis but with extensive very stated [place] around 8 years ago including MRI, ocular coherence testing, spinal tap was determined that the patient did not have multiple sclerosis or any
demyelinating disease.
Patient does report a history of severe Lyme disease without any evidence of meningitis or radiculopathy or neuropathy and also has a history of migraines.
Patient has not had any neurologic symptoms in the past 8 years since her workup at [facility].
Abnormal brain MRI findings previously in the CT head noncontrast findings chronic white matter abnormalities, given her history this is probably sequelae from previous Lyme disease versus sequelae of migraines. Nothing in her history sounds like a
recent stroke or any type of demyelinating disease.
Subjective/Objective
Subjective Data
Date of Service: May 10, 2023
No acute events, discussed reasoning of MRI brain to pursue or not, feeling improved some, no headache or vision changes
Objective Data
Vital Signs
Temp Pulse Resp BP Pulse Ox
98.3 F 74 13 163/107 94
05/10/23 11:04 05/10/23 12:30 05/10/23 12:00 05/10/23 12:00 05/10/23 00:00
Lab Results
05/10/23 05:12
05/10/23 12:18
PT 14.6 Sec (11.4-14.6) 05/08/23 01:12
INR 1.16 05/08/23 01:12
APTT 30.5 Sec (23.4-35.0) 05/08/23 01:12
Sodium 124 mmol/L (135-145) L 05/10/23 12:18
Potassium 3.6 mmol/L (3.5-5.1) 05/10/23 05:12
BUN 7 mg/dl (7-17) 05/10/23 05:12
Glucose 95 mg/dl (70-99) 05/10/23 05:12
Calcium 9.2 mg/dl (8.4-10.2) 05/10/23 05:12
Phosphorus 3.8 mg/dl (2.5-4.5) 05/08/23 06:00
Ur Buprenorphine Negative (Negative) 05/08/23 07:20
Patient Allergies
sulfamethoxazole [From Bactrim] Allergy (Verified 05/07/23 20:25)
Itching
trimethoprim [From Bactrim] Allergy (Verified 05/07/23 20:25)
Itching
Review of Systems
-
History Source: Patient
All other systems: Reviewed and negative
Constitutional: No Symptoms
EENT: No Symptoms Reported
Respiratory: No Symptoms
Cardiac: No Symptoms
Abdomen/GI: No Symptoms
Genitourinary: No Symptoms
Musculoskeletal: No Symptoms
Skin: No Symptoms
Neuro: Negative Speech Problem
Endocrine: No Symptoms
Hematologic / Lymphatic: No Symptoms
Allergy / Immunology: No Symptoms
Physical Exam
-
General: Comfortable
Eyes: No Ptosis
HEENT: Normocephalic
Neck: No Bruits Bilaterally
Respiratory: Clear to Auscultation
Cardiac: Regular Rhythm
GI: Normal Bowel Sounds
Skin: Unremarkable
Extremities: No Clubbing
Psych: Negative Intact Judgement/Insight
Extended Neurological Exam
Mood & Affect: Mood Unremarkable and Affect Unremarkable
Attention Span & Concentration: Awake, Alert and Interactive
Memory: Unremarkable
Tremor: Hand Tremor Absent
Involuntary Movement: None
Speech: Quality Unremarkable and Quantity Unremarkable; Negative Expressive Aphasia or Dysarthric
Cranial Nerve II: Left Eye: Pupillary Reactivity Unremarkable, Pupillary Size Unremarkable and Visual Romero Intact
Cranial Nerve II: Right Eye: Pupillary Reactivity Unremarkable, Pupillary Size Unremarkable and Visual Romero Intact
Cranial Nerves III, IV, : Extraocular Movement: Extraocular Movement Full in all Directions
Cranial Nerve V: Facial Sensation: Facial Sensation Unremarkable to Cold
Cranial Nerve VII: Facial Symmetry: Normal Facial Symmetry
Muscle Strength, Overall: Full Throughout
Muscle Bulk & Tone: Bulk Unremarkable
Pronator Drift: No Drift in Upper Extremities
Deep Tendon Reflexes: Unremarkable Throughout
Touch Sensation: Unremarkable
Coordination: Felneo-[id number]-hthfvq Testing Unremarkable
Gait & Station: Unremarkable Arm Swing and Up from Seated Without Problem
Data Reviewed
-
CT Head: Report Reviewed and Image Reviewed
MRI Head: Ordered and Pending
--- NOTE | 2023-05-10 16:30 | PTCARENOTE ---
pt resting comfortably. no changes in assessment noted. labs drawn and sent
[2023-05-10 16:50] LABS: Sodium 129 mmol/L (135-145)
--- NOTE | 2023-05-10 16:51 | W.PN.HOSP.TC ---
Today's Communication/Plan
-
follow sodium levels, follow nephrology recs
Assessment / Plan
Assessment / Plan
Assessment:
Severe Acute on chronic hyponatremia:
- likely due to SIADH
- Initial Na level = 114, now 129 after 3% saline =-> this required d5W to counter overcorrection. Now Na 129 most recently 24 hours later
- renal following
- cont to trend Na
- Lexapro/Trazodone remain on hold
- fasting cortisol and TSH normal
- continue OFR, may need Samsca
Chest pressure:
- Trop NEG x 2
- no acute ischemic changes on ECG
Uncontrolled Hypertension:
- Patient reports long history of poor BP control and reported med intolerances to many BP agents in the past.
- continue DIRECTOR OF LITIGATION KACIE and newly started Nifedipine.
Abnormal SYSTEMS DEVELOPMENT CONSULTANT Imaging:
- CT head done in the ED with multiple and bilateral abnormalities - potentially c/w prior CVAs, etc.
- Reviewed with patient who reports prior 'misdiagnosis' of MS.
- Had MRI at [place] reporting demyelinating lesions.� Extensive and detailed evaluation at [place] following this showed no evidence of MS.
- repeat MRI with chronic white matter lesions, no masses
- Neurology following
Muscle Cramping
- likely secondary to fluid / salt imbalance.
- Follow for improvement with Na correction.
- Heat application to extremities.� Valium PRN for spasms / cramping.
Anxiety / Depression
- Significant recent social stressors with relocation, separation, etc.
- Continue quetiapine for now.
- Holding escitalopram and trazodone given severe hyponatremia.
Alcohol Abuse Disorder
- Patient reports daily alcohol use - 2 drinks per day.
- Monitor for any symptoms of withdrawal during visit.
- BZDs if needed based on MSAS.
- Thiamine, folate replacements.
DVT ppx: Lovenox
Code: Full
Anticipated Discharge: 24 - 48 hours
Subjective/Interval History
-
Date of Service: May 10, 2023
Na most recently 129
Objective Data
-
Labs:
Laboratory Results
05/10/23 05/10/23 05/10/23
05:12 12:18 16:33
WBC 6.2
Hgb 14.9
Hct 41.5
Plt Count 242
Sodium 122 L 124 L 129 L
Potassium 3.6
Chloride 92 L
Carbon Dioxide 25
BUN 7
Creatinine 0.4 L
Glucose 95
Calcium 9.2
Vital Signs:
Vital Signs
Temp Pulse Resp BP Pulse Ox
98.4 F 74 13 163/107 94
05/10/23 15:20 05/10/23 12:30 05/10/23 12:00 05/10/23 12:00 05/10/23 00:00
I&O
05/09/23 05/10/23 05/11/23
06:59 06:59 06:59
Intake Total
Output Total
Balance
Physical Exam
-
General: No Apparent Distress
HEENT: Normocephalic and Atraumatic
Respiratory: Negative Wheezes or Rales
Cardiac: Regular Rhythm and S1/S2
GI: Soft and Nontender
Neuro: AO x 3
Hematologic / Lymphatic: No Lymphadenopathy
Psych: Calm
Data Reviewed
-
Total Time Spent with Patient (in minutes): 45
Labs: Labs Reviewed by me
[2023-05-10] MEDS: VALIUM 5 MG PO (22:11)
[2023-05-10] MEDS: SEROQUEL 50 MG PO (22:11)
[2023-05-10 22:32] LABS: Sodium 129 mmol/L (135-145)
[2023-05-11] VITALS (7 sets, daily range): BP systolic 100–151; BP diastolic 54–97
[2023-05-11] MEDS: VALIUM 5 MG PO (03:15)
[2023-05-11 04:02] LABS: Blood Urea Nitrogen 11 mg/dl (7-17); Calcium 9.7 mg/dl (8.4-10.2); Carbon Dioxide 24 mmol/L (22-30); Chloride 99 mmol/L (98-107); Estimated Creatinine Clearance 94 ml/min; Glucose 133 mg/dl (70-99); Potassium 3.6 mmol/L (3.5-5.1); Sodium 131 mmol/L (135-145); Total Cholesterol 217 mg/dl (50-199); Triglyceride 92 mg/dl (10-149); Very Low Density Lipoprotein 18 mg/dl (0-30); eGFR > 60.00
[2023-05-11 04:13] LABS: HDL Cholesterol 121 mg/dl; LDL Cholesterol, Calculated 78 mg/dl
--- NOTE | 2023-05-11 06:02 | PTCARENOTE ---
Pt received at 19:00. Initial assessment as documented. Pt c/o anxiety, PRN valium given. MSAS = 0, complete. Safe environment maintained, call macias within reach, pt repositions self.
[2023-05-11] MEDS: ZESTRIL 2.5 MG PO (09:20)
[2023-05-11] MEDS: VITAMIN B1 100 MG PO (09:20)
[2023-05-11] MEDS: FOLVITE 1 MG PO (09:20)
[2023-05-11] MEDS: ARMOUR THYROID 60 MG PO (09:20)
[2023-05-11] MEDS: LOVENOX 40 MG SC (09:21)
[2023-05-11] MEDS: PROCARDIA XL (EXTENDED RELEASE) PO (10:29)
--- NOTE | 2023-05-11 10:53 | W.PN.NEPH.PH ---
Today's Communication / Plan
-
see plan
Assessment/Plan
-
Assessment:
Hyponatremia
HTN
hypothryrodisim
Depression
Plan:
Hyponatremia felt euvolemic acute on chronic and high ADH driven
urine studies notable for U osm 332 and Na 143 with NS
sodium improving with in goal
TSH and cortisol were ok
Note she was on Lexapro for 30yrs, resume at same dose
she will discuss with her PCP about future change if needed(she reports trying many meds before)
BP lately high due to high stress level at home, Lisinopril Am, procardia Pm dosing
ok to d/c with BMP in 2days with PCP
FR 48 oucnes/day, if sodium still low add lasix 20mg 3xweekly
Nephro as needed
d/w primary
d/w nursing
-
-
Date of Service: May 11, 2023
CC / HPI / ROS
-
Chief Complaint:
hyponatremia
History of Present Illness:
Na to 131 with FR
s/p DDAVP on 05/08
BP low normal this am
Review of Systems:
feeling well
no cp or sob
no dizziness
no other complaints
Labs
-
Labs:
WBC 6.2 10^3/uL (4.8-10.8) 05/10/23 05:12
RBC 5.04 10^6/uL (4.20-5.40) 05/10/23 05:12
Hgb 14.9 g/dL (12.0-16.0) 05/10/23 05:12
Hct 41.5 % (37.0-47.0) 05/10/23 05:12
Plt Count 242 10^3/uL (130-400) 05/10/23 05:12
Sodium 131 mmol/L (135-145) L 05/11/23 03:23
Potassium 3.6 mmol/L (3.5-5.1) 05/11/23 03:23
Chloride 99 mmol/L (98-107) 05/11/23 03:23
Carbon Dioxide 24 mmol/L (22-30) 05/11/23 03:23
BUN 11 mg/dl (7-17) 05/11/23 03:23
Creatinine 0.6 mg/dL (0.6-1.0) 05/11/23 03:23
eGFR > 60.00 05/11/23 03:23
Glucose 133 mg/dl (70-99) H 05/11/23 03:23
Calcium 9.7 mg/dl (8.4-10.2) 05/11/23 03:23
Phosphorus 3.8 mg/dl (2.5-4.5) 05/08/23 06:00
Albumin 5.6 g/dl (3.5-5.0) H 05/07/23 21:32
Physical Exam
-
Vital Signs:
Vital Signs
Temp Pulse Resp BP Pulse Ox
97.4 F 68 13 105/86 98
05/11/23 07:48 05/11/23 05:30 05/10/23 12:00 05/11/23 04:00 05/10/23 16:00
Cardiovascular:: Regular rate and rhythm
Respiratory:: Bilateral: CTA
Lung Excursion:: Normal
Extremity Edema:: None: Bilateral:
Jennings Catheter: No
--- NOTE | 2023-05-11 13:38 | PN.CDI ---
CDI
- -
CDI:
Physician Documentation Request
Admit Date: 05/08/23 00:31
Dear Doctor Fili,
Clinical Indicators:
Patient admitted with severe hyponatremia.
05/09 PN 'Uncontrolled Hypertension...continue PHYSICAL INSTRUCTOR KACIE and newly started Nifedipine.'
Labetalol 10 mg IV x 3 doses given
BP trend:
05/07/23
21:40 05/08/23
03:00 05/10/23
10:35
Blood pressure 210/110 193/108 197/128
05/10/23
11:36 05/10/23
11:42
Blood pressure 201/126 186/101
Please clarify which, if any of the following, is a more accurate diagnosis reflecting the type and acuity of the documented hypertension:
Essential primary hypertension
Hypertensive Urgency - B/P is severely elevated (systolic > or = to 180 or diastolic > or = to 110) but there is no associated organ damage. Symptoms may include: headache, shortness of breath, nosebleeds, severe anxiety. Treatment usually consists
of addition to or adjusting of oral medications and does not generally necessitate hospitalization.
Hypertensive Emergency - B/P is severely elevated (systolic > or = to 180 or diastolic > or = to 110) but can occur at lower levels especially in patients who did not previously have high B/P. There is usually associated organ damage. Symptoms may
include: memory loss, LOC, CVA, SC, angina, renal failure, pulmonary edema. Generally requires more aggressive treatment and a hospitalization.
Other (please specify)
Use of terms such as suspected, likely, concern for, or probable (associated with a specific diagnosis that is being evaluated, monitored, or treated as if it exists) are acceptable and can be coded in the inpatient setting, when documented at the
time of discharge.
Thank you,
NATALIE Booth RN
CDI Specialist
available via tiger text
Please use your independent medical judgment in providing your response.
--- NOTE | 2023-05-11 13:50 | W.PN.HOSP.TC ---
Addendum entered and electronically signed by Myrna Penn MD 05/11/23 13:57:
Hypertensive Urgency
Original Note:
Today's Communication/Plan
-
dc home
Assessment / Plan
Assessment / Plan
Assessment:
Severe Acute on chronic hyponatremia:
- likely due to SIADH
- Initial Na level = 114, now 129 after 3% saline =-> this required d5W to counter overcorrection. Now Na 131
- renal following
- cont to trend Na
- Lexapro/Trazodone remain on hold
- fasting cortisol and TSH normal
- continue OFR at discharge
Chest pressure:
- Trop NEG x 2
- no acute ischemic changes on ECG
Uncontrolled Hypertension:
- Patient reports long history of poor BP control and reported med intolerances to many BP agents in the past.
- continue COFOUNDER KACIE and newly started Nifedipine.
Abnormal DIP FILLER Imaging:
- CT head done in the ED with multiple and bilateral abnormalities - potentially c/w prior CVAs, etc.
- Reviewed with patient who reports prior 'misdiagnosis' of MS.
- Had MRI at [place] reporting demyelinating lesions.� Extensive and detailed evaluation at [place] following this showed no evidence of MS.
- repeat MRI with chronic white matter lesions, no masses
- Neurology following
Muscle Cramping
- likely secondary to fluid / salt imbalance.
- Follow for improvement with Na correction.
- Heat application to extremities.� Valium PRN for spasms / cramping.
Anxiety / Depression
- Significant recent social stressors with relocation, separation, etc.
- Continue quetiapine for now.
- Holding escitalopram and trazodone given severe hyponatremia.
Alcohol Abuse Disorder
- Patient reports daily alcohol use - 2 drinks per day.
- Monitor for any symptoms of withdrawal during visit.
- BZDs if needed based on MSAS.
- Thiamine, folate replacements.
DVT ppx: Lovenox
Code: Full
More than 30 minutes spent in discharge including
Final examination of the patient
Summarizing hospital stay
Instructions for continuing care to all relevant caregivers
Preparation of discharge records, prescriptions, and referral forms
Total time spent (in minutes):41
Anticipated Discharge: Today
Subjective/Interval History
-
Date of Service: May 11, 2023
no complaints
eager for DC
Objective Data
-
Labs:
Laboratory Results
05/11/23
03:23
Sodium 131 L
Potassium 3.6
Chloride 99
Carbon Dioxide 24
BUN 11
Creatinine 0.6
Glucose 133 H
Calcium 9.7
Vital Signs:
Vital Signs
Temp Pulse Resp BP Pulse Ox
98.0 F 106 13 112/64 98
05/11/23 11:18 05/11/23 12:00 05/10/23 12:00 05/11/23 10:00 05/10/23 16:00
Physical Exam
-
General: No Apparent Distress
HEENT: Normocephalic and Atraumatic
Respiratory: Negative Wheezes or Rales
Cardiac: Regular Rhythm and S1/S2
GI: Soft and Nontender
Neuro: AO x 3
Hematologic / Lymphatic: No Lymphadenopathy
Psych: Calm
Data Reviewed
-
Total Time Spent with Patient (in minutes): 41
Labs: Labs Reviewed by me
--- NOTE | 2023-05-11 13:57 | W.DS.TRANS ---
DC Summary - Lan Manager
-
Discharge Instructions:
Discharge Diagnosis/Procedures hyponatremia, elevated BP
Diet Restrict fluids to 48 oz,Regular
Activity As tolerated
Bathing Restrictions None
Blood Work BMP for sodium level in 2 days - script given
Instructions:
Stand-Alone Forms:
Changes to Home Medications: No
Discharge Medications:
DC Medications w/original date entered in [email or web address]
Lactobac no.2-Bifidobac no.1-S. thermo 112.5 billion cell capsule (Visbiome) 1 cap PO DAILY Gastrointestinal Issue 05/07/23
cyclosporine 0.05 % eye drops in a dropperette (Restasis) 1 drp BOTH EYES Q12H Eye Condition 05/07/23
dextroamphetamine-amphetamine 20 mg tablet (Adderall) 10 mg PO BID@0800,1200 adhd 05/07/23
escitalopram oxalate 10 mg tablet (Lexapro) 10 mg PO DAILY Mental Health/Anxiety 05/07/23
lisinopril 2.5 mg tablet 2.5 mg PO DAILY@1500 Blood Pressure 05/07/23
polyethylene glycol 3350 17 gram oral powder packet (Miralax) 17 g PO DAILY Constipation 05/07/23
quetiapine 100 mg tablet (Seroquel) 50 mg PO HS Mental Health/Anxiety 05/07/23
therapeutic multivitamin 1 tab PO DAILY Supplement 05/07/23
thyroid (pork) 60 mg tablet ([place] Thyroid) 60 mg PO DAILY Thyroid 05/07/23
trazodone 150 mg tablet 225 mg PO HS Mental Health/Anxiety 05/07/23
nifedipine 30 mg tablet,extended release 30 mg PO DAILY #30 tabs 05/11/23
Home Medication Changes
Pending Results: No
Total time spent discharging patient (in min): 41
--- NOTE | 2023-05-11 15:00 | PTCARENOTE ---
Pt discharged to home. Reviewed discharge instruction, home meds, f/u visits and labs. Discharge with all belongings from room.
--- NOTE | 2023-05-11 16:20 | CM ---
CM following re: d/c planning
Chart reviewed
Pt is medically stable for d/c
Pt has a hx of daily ETOH abuse due to recent stressful social factors
Previous CM offered [facility] as a resource and the patient declined
No skilled needs identified
PLAN; d/c home no needs
== END 2023-05-11 14:50 | disposition home or self-care (01) | DRG 644 ==
LOC: ICU 00:31
PROVIDERS: Internal Medicine; Nurse Practitioner Family; Physician Assistant; ADMITTING PHYSICIAN Hospitalist; ATTENDING PHYSICIAN Internal Medicine; CONSULT PHYSICIAN Internal Medicine; CONSULT PHYSICIAN Psychiatry & Neurology Neurology; CONSULT PHYSICIAN Student in an Organized Health Care Education/Training Program; EMERGENCY PHYSICIAN Emergency Medicine; FAMILY PHYSICIAN Internal Medicine
DX: E22.2 Syndrome of inappropriate secretion of antidiuretic hormone (principal); E87.20 Acidosis, unspecified; F41.1 Generalized anxiety disorder; I11.9 Hypertensive heart disease without heart failure; R61 Generalized hyperhidrosis; F32.A Depression, unspecified; I16.0 Hypertensive urgency; F10.10 Alcohol abuse, uncomplicated; E87.8 Other disorders of electrolyte and fluid balance, not elsewhere classified; K21.9 Gastro-esophageal reflux disease without esophagitis; F90.9 Attention-deficit hyperactivity disorder, unspecified type; N80.9 Endometriosis, unspecified; G43.909 Migraine, unspecified, not intractable, without status migrainosus; E03.9 Hypothyroidism, unspecified; Z98.82 Breast implant status; Z88.1 Allergy status to other antibiotic agents; Z88.2 Allergy status to sulfonamides; Z86.73 Personal history of transient ischemic attack (TIA), and cerebral infarction without residual deficits
CPT/HCPCS: 70450; 70553; 71046; 80048; 80053; 80061; 80306; 80307; 81003; 81015; 82077; 82533; 82550; 83735; 83930; 83935; 84100; 84295; 84300; 84443; 84484; 85025; 85027; 85610; 85730; 93005; 93306; 96361; 96374; 96375; 99291; A9575; J2597

== ENCOUNTER → 2023-05-13 13:58 | Outpatient (REF) | payer BC, SELFPAY ==
[2023-05-13 14:49] LABS: Blood Urea Nitrogen 12 mg/dl (7-17); Calcium 9.8 mg/dl (8.4-10.2); Carbon Dioxide 27 mmol/L (22-30); Chloride 98 mmol/L (98-107); Glucose 93 mg/dl (70-99); Potassium 4.4 mmol/L (3.5-5.1); Sodium 133 mmol/L (135-145); eGFR > 60.00
== END ==
LOC: REG 13:58
PROVIDERS: ATTENDING PHYSICIAN Internal Medicine; FAMILY PHYSICIAN Internal Medicine
DX: E87.1 Hypo-osmolality and hyponatremia (principal)
CPT/HCPCS: 36415; 80048

== ENCOUNTER → 2023-06-07 13:40 | Outpatient (REF) | payer BC, SELFPAY ==
[2023-06-07 14:51] LABS: Sodium 128 mmol/L (135-145)
== END ==
LOC: REG 13:40
PROVIDERS: ATTENDING PHYSICIAN Psychiatry & Neurology Psychiatry; FAMILY PHYSICIAN Internal Medicine
DX: F33.1 Major depressive disorder, recurrent, moderate (principal)
CPT/HCPCS: 36415; 84295

== ENCOUNTER → 2023-06-11 16:00 | Outpatient (REF) | payer BC, SELFPAY ==
[2023-06-11 16:54] LABS: Blood Urea Nitrogen 18 mg/dl (7-17); Calcium 10.3 mg/dl (8.4-10.2); Carbon Dioxide 26 mmol/L (22-30); Chloride 95 mmol/L (98-107); Glucose 90 mg/dl (70-99); Potassium 4.7 mmol/L (3.5-5.1); Sodium 132 mmol/L (135-145); eGFR > 60.00
== END ==
LOC: REG 16:00
PROVIDERS: ATTENDING PHYSICIAN Internal Medicine
DX: E87.1 Hypo-osmolality and hyponatremia (principal)
CPT/HCPCS: 36415; 80048

== ENCOUNTER → 2023-06-17 15:48 | Outpatient (REF) | payer BC, SELFPAY ==
[2023-06-17 16:47] LABS: Blood Urea Nitrogen 15 mg/dl (7-17); Calcium 9.7 mg/dl (8.4-10.2); Carbon Dioxide 25 mmol/L (22-30); Chloride 96 mmol/L (98-107); Glucose 83 mg/dl (70-99); Potassium 4.5 mmol/L (3.5-5.1); Sodium 132 mmol/L (135-145); eGFR > 60.00
== END ==
LOC: REG 15:48
PROVIDERS: ATTENDING PHYSICIAN Internal Medicine
DX: E22.2 Syndrome of inappropriate secretion of antidiuretic hormone (principal)
CPT/HCPCS: 36415; 80048

== ENCOUNTER 2023-12-07 21:34 | Emergency (ER) | payer OTHER, SELFPAY ==
[2023-12-07 21:40] VITALS: BP 161/126
[2023-12-07 21:55] VITALS: BMI 20.2
[2023-12-07 22:00] VITALS: BP 165/103
--- NOTE | 2023-12-07 22:54 | ED.GENMED ---
History of Present Illness
<WIL Strickland - Last Filed: 12/08/23 01:52>
General
Chief Complaint: Abnormal Lab Value
Source: patient
Exam Limitations: none
Time Seen by Provider: 12/07/23 22:36
History of Present Illness
History of Present Illness:
This is a 57 year old female that comes in with c/o symptoms of Hyponatremia. States that she as here for 5 days with Hyponatremia in April. States that she was told to come back if she every had any symptoms like that again. States that for a few
days and then worse today she has had urinary frequency, headache, and feels like she is going to start cramping. State that she had cramps the last time but has not so far. States that she is lightheaded and her headache is in the back of her head
and sides slightly. States that she has also had diarrhea with nausea. Denies any fever, chills, chest pain, SOB, abd pain, vomiting, dizziness, urinary burning.
Past History
<WIL Strickland - Last Filed: 12/08/23 01:52>
Past History
ED Past Medical History: HTN, Psychiatric (Anxiety, Depression) and Other (Migraines, endometriosis, Ulcers, SIADH)
ED Past Surgical History: Orthopedic (Right knee arthroscopy), Urological (Bldder surgery, ) and Other (Breast implantations)
Social History
Tobacco: Non-smoker
Alcohol: Occasional
Drug: None
Personal:
Living: alone
Employment: Employed
Family History
Family History: Other (Reviewed and noncontributory)
Review of Systems
<WIL Strickland - Last Filed: 12/08/23 01:52>
Review of Systems
All Other Systems: ROS reviewed and negative except as documented in HPI and ROS
Constitutional: Reports no symptoms; Denies fever or chills
EENT: Reports no symptoms
Respiratory: Reports no symptoms; Denies cough or trouble breathing
Cardiac: Reports no symptoms; Denies chest pain
ABD/GI: Reports nausea and diarrhea; Denies abdominal pain or vomiting
: Reports frequency; Denies dysuria or urgency
Musculoskeletal: Reports no symptoms
Skin: Reports no symptoms
Neurological: Reports headache and other (Lightheaded)
Psychiatric: Reports no symptoms
Phy Exam
<WIL Strickland - Last Filed: 12/08/23 01:52>
General Physical Exam
General Presentation: well appearing and no apparent distress
General age: appears stated age
General Skin: warm and dry
General Habitus: normal
General Mental: alert
General Hydration: appears well hydrated
ENT Exam
ENT Exam: TM's normal, pharynx normal and neck supple
Eye Exam
Eye Exam: EOMI
Cardiovascular Exam
Cardiovascular Exam: regular rate/rhythm, no edema, no murmur and normal peripheral pulses
Pulmonary Exam
Pulmonary Exam: lungs clear, no respiratory distress, no rales, chest non tender, no crackles, no rhonchi, no wheezing and no cough
Gastrointestinal Exam
Gastrointestinal Exam: normal bowel sounds, non tender, soft, no organomegaly, no pulsatile mass and non distended
Musculoskeletal Exam
Musculoskeletal Exam: full ROM and no edema
Skin Exam
Skin Exam: normal color, warm/dry, no rash and no petechia
Course
<WIL Strickland - Last Filed: 12/08/23 01:52>
Orders/Labs/Results
Orders:
Orders
12/07/23 23:11
Complete Blood Count/With Diff Urgent
Comprehensive Metabolic Panel Urgent
12/08/23 00:27
Ketorolac [Toradol] 15 mg IV NOW STA
12/08/23 00:35
Urinalysis Reflex To Culture Urgent
Date Specimen was Collected: 12/08/23
Time Specimen was Collected: 00:34
Urine Microscopic Reflex Cult Urgent
12/08/23 00:36
COVID-19 Antigen Urgent
Source: Nasal Swab
Influenza A+B Rapid Molecular Urgent
DUC Source: Nasal Swab
Specimen Description:
Abnormal Lab Results
12/07/23 12/08/23
23:11 00:35
WBC 13.0 H 10^3/uL
(4.8-10.8)
Absolute Neuts (auto) 12.3 H 10^3/uL
(1.4-6.5)
Absolute Lymphs (auto) 0.3 L 10^3/uL
(1.2-3.4)
Neutrophils % 94.4 H %
(42.2-75.2)
Lymphocytes % 2.6 L %
(20.5-51.1)
Sodium 129 L mmol/L
(135-145)
Chloride 93 L mmol/L
(98-107)
Carbon Dioxide 21 L mmol/L
(22-30)
Glucose 123 H mg/dl
(70-99)
Urine Ketones 1+ A
(Negative)
Ur Occult Blood Reflex 1+ A
(Negative)
Urine RBC 11-15 A /HPF
(0-2)
Urine Bacteria (Reflex) Few A
(Negative)
12/07/23 23:11
12/07/23 23:11
Leukocytosis, hyponatremia, chloride low. carbon dioxide slightly low, Hyperglycemia.
COVID and Influenza negative, Urine negative for infection.
Vital Signs
Initial and Last Documented VS:
Initial Vital Signs
Temp Pulse Resp BP Pulse Ox
98.7 F 109 17 161/126 97
12/07/23 21:40 12/07/23 21:40 12/07/23 21:40 12/07/23 21:40 12/07/23 21:40
Last Documented Vital Signs
Temp Pulse Resp BP Pulse Ox
98.7 F 87 17 150/90 97
12/07/23 21:40 12/08/23 01:00 12/07/23 21:40 12/08/23 01:00 12/08/23 01:00
<Trenton Zhu MD - Last Filed: 12/08/23 00:33>
Orders/Labs/Results
Orders:
Orders
12/07/23 23:11
Complete Blood Count/With Diff Urgent
Comprehensive Metabolic Panel Urgent
12/08/23 00:27
Ketorolac [Toradol] 15 mg IV NOW STA
12/08/23 00:35
Urinalysis Reflex To Culture Urgent
Date Specimen was Collected: 12/08/23
Time Specimen was Collected: 00:34
Urine Microscopic Reflex Cult Urgent
12/08/23 00:36
COVID-19 Antigen Urgent
Source: Nasal Swab
Influenza A+B Rapid Molecular Urgent
DUC Source: Nasal Swab
Specimen Description:
Abnormal Lab Results
12/07/23 12/08/23
23:11 00:35
WBC 13.0 H 10^3/uL
(4.8-10.8)
Absolute Neuts (auto) 12.3 H 10^3/uL
(1.4-6.5)
Absolute Lymphs (auto) 0.3 L 10^3/uL
(1.2-3.4)
Neutrophils % 94.4 H %
(42.2-75.2)
Lymphocytes % 2.6 L %
(20.5-51.1)
Sodium 129 L mmol/L
(135-145)
Chloride 93 L mmol/L
(98-107)
Carbon Dioxide 21 L mmol/L
(22-30)
Glucose 123 H mg/dl
(70-99)
Urine Ketones 1+ A
(Negative)
Ur Occult Blood Reflex 1+ A
(Negative)
Urine RBC 11-15 A /HPF
(0-2)
Urine Bacteria (Reflex) Few A
(Negative)
12/07/23 23:11
12/07/23 23:11
Vital Signs
Initial and Last Documented VS:
Initial Vital Signs
Temp Pulse Resp BP Pulse Ox
98.7 F 109 17 161/126 97
12/07/23 21:40 12/07/23 21:40 12/07/23 21:40 12/07/23 21:40 12/07/23 21:40
Last Documented Vital Signs
Temp Pulse Resp BP Pulse Ox
98.7 F 87 17 150/90 97
12/07/23 21:40 12/08/23 01:00 12/07/23 21:40 12/08/23 01:00 12/08/23 01:00
<WIL Strickland - Last Filed: 12/08/23 01:52>
MDM/Problems Addressed
Differential Diagnosis Includes:
Hyponatremia. Dehydration.
MDM/Problems Addressed:
This is a 57 year old female that comes in with c/o symptoms of Hyponatremia. States that she was here in April for 5 days with Hyponatremia and was told to come back if she started with symptoms. States that a few days ago she started with urinary
frequency and this has continued with headache, lightheadedness.
Will check labs and give IV fluids if Sodium level is normal.
Patient was seen by Dr. Zhu. Will get Urine, COVID and Influenza, If all negative will discharge home.
Into see patient. Explained that her Urine is negative for infection. COVID and Influenza are negative. Patient encouraged to try eating some canned soup of boxed food as this is higher in sodium Patient to return with worsening symptoms. Will also
give patient an out patient lab slip for repeat BMP in 2 days. Patient to return with any concerns.
Chronic conditions affecting care:
Hyponatremia,
Acute Exacerbation and/or Progression of Chronic Illness:
NA
<WIL Strickland - Last Filed: 12/08/23 01:52>
*Pulse Oximetry
Patient hypoxic: no
*EKG
Interpreted by ED Provider?: NA
Rate: EKG- N/A
*Environmental Engineering Technician Interpretation
Rate: Environmental Engineering Technician- N/A
*Critical Care Note
Total Time (30-74mins, 75-104mins- exclusive of procedures): Not Applicable
ED Attending Note
<WIL Strickland - Last Filed: 12/08/23 01:52>
-
Portions of this chart may have been created with voice recognition software.� Occasional wrong word or��sound alike� substitutions may have occurred due to the inherent limitations of voice recognition software.
<Trenton Zhu MD - Last Filed: 12/08/23 00:33>
ED Attending Note
Patient seen and examined by attending physician: Yes
I performed the substantive portion of visit, reviewed & personally made and approve the management plan that is documented in note by myself or POLLO.: Yes
ED Attending Note:
57-year-old female complaining of some posterior headaches muscle cramps dizziness. Started 2 days ago. History of hyponatremia. Similar symptoms as to her recent hyponatremia.
On exam patient is nontoxic in no distress. Neck is supple. She is awake and alert nontoxic. Speech is normal. Discs are sharp. No respiratory distress. Nonfocal.
Temperature 99.6. Vital signs stable. Mild hyponatremia at 129. However previous sodiums have been in this range. Mild leukocytosis.
Cannot at this time explain her symptoms by hyponatremia. May have an infectious source with the borderline temperature and white count. Urinalysis COVID and flu pending. Discussed admission versus outpatient management with the patient. She is
comfortable with outpatient management. We will treat for UTI if positive. Repeat sodium in 2 days.
Discharge Plan
Departure
Patient Disposition: Home (Routine Discharge)
Date of Disposition: 12/08/23
Time of Disposition: 01:39
Patient with high blood pressure during this ER visit?: Yes
Condition: Good
Covid-19: Not Applicable
Discharge Problem:
Hyponatremia
Instructions: Hyponatremia, BLOOD PRESSURE
Prescriptions:
No Action
cyclosporine [Restasis] 0.05 % Dropperette
1 drp BOTH EYES Q12H
thyroid (pork) [[place] Thyroid] 60 mg Tablet
60 mg PO DAILY
quetiapine [Seroquel] 100 mg Tablet
50 mg PO HS
trazodone 150 mg Tablet
225 mg PO HS
dextroamphetamine-amphetamine [Adderall] 20 mg Tablet
10 mg PO BID@0800,1200
lisinopril 2.5 mg Tablet
2.5 mg PO DAILY@1500
escitalopram oxalate [Lexapro] 10 mg Tablet
10 mg PO DAILY
polyethylene glycol 3350 [Miralax] 17 gram Powder In Packet
17 g PO DAILY
therapeutic multivitamin Tablet
1 tab PO DAILY
Visbiome 112.5 billion cell Capsule
1 cap PO DAILY
nifedipine 30 mg Tablet Extended Release
30 mg PO DAILY Qty: 30 0RF
Referrals:
Gayle Denton MD [Family Provider] - Follow up in 2-3 days
Activity Restrictions/Additional Instructions:
As discussed, your sodium is slightly low. You have been given an out patient slip for repeat blood work in 2 days. Please try eating some canned soup or boxed food to help increase your sodium. Please limit your water intake to 6-8oz glasses daily.
Follow up with the family doctor in the next 2-3 days for recheck. IF YOU HAVE INCREASED SYMPTOMS OR ANY OTHER CONCERNS PLEASE RETURN TO THE EMERGENCY ROOM.
Interventions
Interventions:
*Risk Screen - Suicide Last Done: 12/07/23 21:40
*General Assessment Last Done: 12/07/23 21:40
*Neglect/Abuse Screening Last Done: 12/07/23 21:40
*ED COVID-19 Vaccine History Last Done: 12/07/23 21:40
Discharge Date and Time
Print Language: SWEDISH
[2023-12-07 23:13] VITALS: BP 148/83
[2023-12-07 23:16] LABS: % Basophils 0.2 % (0-2); % Immature Granulocytes 0.3 % (0-0.5); % Lymphocytes 2.6 % (20.5-51.1); % Monocytes 2.5 % (1.7-9.3); % Neutrophils 94.4 % (42.2-75.2); Absolute Lymphocytes 0.3 10^3/uL (1.2-3.4); Absolute Monocytes 0.3 10^3/uL (0.1-0.6); Absolute Neutrophils 12.3 10^3/uL (1.4-6.5); Hematocrit 41.1 % (37.0-47.0); Hemoglobin 14.6 g/dL (12.0-16.0); Mean Corp Hgb Conc. 35.5 g/dL (33.0-37.0); Mean Corpuscular Hgb 30.2 pg (27.0-31.0); Mean Corpuscular Volume 84.9 fL (81.0-99.0); Mean Platelet Volume 8.8 fL (7.4-10.4); Nucleated Red Blood Cells % 0 %; Platelet Count 182 10^3/uL (130-400); Red Blood Cell Count 4.84 10^6/uL (4.20-5.40); Red Cell Dist. Width 13.2 % (11.5-14.5)
[2023-12-07 23:29] LABS: ALT (SGPT) 29 U/L (0-35); AST (SGOT) 36 U/L (14-36); Alkaline Phosphatase 44 U/L (38-126); Blood Urea Nitrogen 9 mg/dl (7-17); Calcium 9.7 mg/dl (8.4-10.2); Carbon Dioxide 21 mmol/L (22-30); Chloride 93 mmol/L (98-107); Estimated Creatinine Clearance 91 ml/min; Glucose 123 mg/dl (70-99); Sodium 129 mmol/L (135-145); Total Bilirubin 0.6 mg/dl (0.2-1.3); Total Protein 7.8 g/dl (6.3-8.2); eGFR > 60.00
[2023-12-08] VITALS: BP 150/76
[2023-12-08] MEDS: TORADOL 15 MG IV (00:40)
[2023-12-08 00:50] LABS: Urine Albumin Negative (Neg - Trace); Urine Bilirubin Negative (Negative); Urine Character Clear (Clear); Urine Color Yellow; Urine Glucose Negative (Negative); Urine Ketone 1+ (Negative); Urine Leukocyte Negative (Negative); Urine Nitrite Negative (Negative); Urine Occult Blood 1+ (Negative); Urine Urobilinogen Negative (Neg - 1+)
[2023-12-08 01:00] VITALS: BP 150/90
[2023-12-08 01:04] LABS: COVID-19 Antigen Negative (Negative)
[2023-12-08 01:30] LABS: Urine Bacteria Few (Negative); Urine White Cell 0-2 /HPF (0-5)
== END 2023-12-08 01:54 | disposition home or self-care (01) ==
LOC: EMR 21:34
PROVIDERS: Clinical Nurse Specialist Family Health; EMERGENCY PHYSICIAN Emergency Medicine; FAMILY PHYSICIAN Internal Medicine
DX: E87.1 Hypo-osmolality and hyponatremia (principal); I10 Essential (primary) hypertension; Z11.52 Encounter for screening for COVID-19
CPT/HCPCS: 99284; 96374; 80053; 81003; 81015; 85025; 87502; 87811

== ENCOUNTER → 2023-12-10 15:31 | Outpatient (REF) | payer OTHER, SELFPAY ==
[2023-12-10 16:25] LABS: Blood Urea Nitrogen 7 mg/dl (7-17); Calcium 9.7 mg/dl (8.4-10.2); Carbon Dioxide 26 mmol/L (22-30); Chloride 96 mmol/L (98-107); Glucose 117 mg/dl (70-99); Potassium 4.2 mmol/L (3.5-5.1); Sodium 133 mmol/L (135-145); eGFR > 60.00
== END ==
LOC: REG 15:31
PROVIDERS: ATTENDING PHYSICIAN Clinical Nurse Specialist Family Health; FAMILY PHYSICIAN Internal Medicine
DX: E87.1 Hypo-osmolality and hyponatremia (principal)
CPT/HCPCS: 36415; 80048

== ENCOUNTER → 2024-01-24 17:01 | Outpatient (REF) | payer OTHER, SELFPAY ==
[2024-01-24 17:49] LABS: Osmolality Urine 297 mOsm/kg (300-900); Urine Albumin Negative (Neg - Trace); Urine Bilirubin Negative (Negative); Urine Character Clear (Clear); Urine Color Yellow; Urine Glucose Negative (Negative); Urine Ketone Negative (Negative); Urine Leukocyte Negative (Negative); Urine Nitrite Negative (Negative); Urine Occult Blood Negative (Negative); Urine Urobilinogen Negative (Neg - 1+); Urine pH 6.5 (5.0-9.0)
[2024-01-24 17:55] LABS: Osmolality Serum 276 mOsm/kg (275-300)
[2024-01-24 18:01] LABS: Albumin 5.2 g/dl (3.5-5.0); Blood Urea Nitrogen 12 mg/dl (7-17); Calcium 9.7 mg/dl (8.4-10.2); Carbon Dioxide 28 mmol/L (22-30); Chloride 95 mmol/L (98-107); Glucose 89 mg/dl (70-99); Phosphorus 3.8 mg/dl (2.5-4.5); Potassium 4.2 mmol/L (3.5-5.1); Sodium 133 mmol/L (135-145); eGFR > 60.00
[2024-01-24 18:10] LABS: Protein/creatinine Ratio 0.3; Urine Protein 8 mg/dl; Urine Sodium 61 mmol/L (30-90)
== END ==
LOC: REG 17:01
PROVIDERS: ATTENDING PHYSICIAN Internal Medicine; FAMILY PHYSICIAN Internal Medicine
DX: E87.1 Hypo-osmolality and hyponatremia (principal)
CPT/HCPCS: 36415; 80069; 81003; 82570; 83930; 83935; 84156; 84300